=== PATIENT | male | born 1960 | race Caucasian/White ===

== ENCOUNTER 2021-09-22 18:29 | Inpatient (IN) | payer MEDICARE, OTHER ==
[2021-09-22 17:50] VITALS: BP 100/64
--- NOTE | 2021-09-22 17:50 | NUR ---
PROPAGATION MANAGERDATA PROGRAMMER NOTES RECEIVED FROM DIRECT FROM [facility] ENDORSED BY DR. OLMEDO VIA ROSANA. PATIENT IS RESTING AND DOESN'T ANSWER WHEN ASKED. UNABLE TO OBTAIN INFORMATION FROM THE PATIENT SINCE PATIENT IS CONFUSED. WITH NO COMPLAINTS OF PAIN OR DISCOMFORT AT THIS TIME. ON O2 AT 2LPM VIA NASAL CANNULA SATTING AT 97%. NO SOB NOTED. NOT IN DISTRESS. ON TELE MONITOR CURRENTLY READING SINUS RHYTHM AT 85BPM. WITH IV ACCESS AT RIGHT UPPER ARM G18 MIDLINE SALINE LOCKED, PATENT AND INTACT. PATIENT REFUSED SKIN ASSESSMENT. SAFETY MEASURES IN PLACED. CALL LIGHT WITHIN REACH. BED ON LOWEST LOCKED POSITION, SIDE RAILS UP X2. WILL CONTINUE TO MONITOR.
[2021-09-22] MEDS ORDERED: MAGNESIUM HYDROXIDE 30 ML UDC PO PRN (19:00)
[2021-09-22] MEDS ORDERED: LORAZEPAM 1 MG TABLET PO PRN (19:00)
[2021-09-22] MEDS ORDERED: MAG HYDROX/AL HYDROX/SIMETH 30 ML UDC PO PRN (19:00)
[2021-09-22] MEDS ORDERED: Z GUARD REMEDY 4 OZ OINT TP PRN (19:00)
[2021-09-22] MEDS ORDERED: ONDANSETRON HCL/PF 4 MG/2 ML VIAL IVP PRN (19:00)
--- NOTE | 2021-09-22 19:15 | NUR ---
RN NOTES PATIENT IS WITH SUICIDAL IDEATION PER REPORT FROM ENCINO. ENDORSED PATIENT TO SPENCER REGALADO FOR TITI.
--- NOTE | 2021-09-22 19:30 | NUR ---
RN NOTE RECEIVED PT SLEEPING, AROUSES TO STIMULI, PT REFUSED TO COMMUNICATE WHEN ASKED QUESTIONS, PT JUST SAYING NO. NO SIGNS OF DISTRESS NOTED. ON TELE MONITOR SHOWS SR HR 84. WILL CLOSELY MONITOR PATIENT.
[2021-09-22 19:44] LABS: CALCIUM, SERUM 8.1 mg/dL (8.5-10.1); CREATININE 0.6 mg/dL (0.6-1.3)
[2021-09-22 20:00] VITALS: BP 98/53
[2021-09-22 20:13] LABS: BASOPHILS % (AUTO) 0.3 % (0.0-2.0); EOSINOPHILS % (AUTO) 1.3 % (0.0-6.0); HEMATOCRIT 35 % (39-51); HEMOGLOBIN 11.5 g/dL (13.5-17.5); LYMPHOCYTES # (AUTO) 0.8 K/uL (0.8-4.8); LYMPHOCYTES % (AUTO) 6.9 % (20.0-44.0); MEAN CORPUSCULAR HGB CONC 33 g/dl (31.0-36.0); MEAN CORPUSCULAR VOLUME 91 fL (80-96); MONOCYTES # (AUTO) 0.9 K/uL (0.1-1.30); MONOCYTES % (AUTO) 8.2 % (2.0-12.0); NEUTROPHILS # (AUTO) 9.5 K/uL (1.8-8.9); NEUTROPHILS % (AUTO) 83.3 % (43.0-81.0); PLATELET COUNT (AUTO) 322 K/uL (150-450); WHITE BLOOD COUNT (AUTO) 11.4 K/uL (4.3-11.0)
[2021-09-23] VITALS: BP 96/64
--- NOTE | 2021-09-23 01:11 | NUR ---
RN NOTE PT STILL SLEEPING. NO SIGNS OF DISTRESS. ABLE TO TAKE PHOTO OF ABDOMINAL INCISION WITH DREW. NO S/SX OF INFECTION NOTED. SACRUM REDNESS NOTED, APPLIED ZGUARD. CONTINUE TO MONITOR.
[2021-09-23 04:03] VITALS: BP 104/72
--- NOTE | 2021-09-23 06:49 | NUR ---
RN NOTE PT UNCOOPERATIVE, SAYING NO TO EVERYTHING AND INAPPROPRIATE WORDS. NO SIGNS OF PAIN OR DISTRESS NOTED. CONTINUE ON O2 AT 2L. MIDLINE ON ERIC PATENT AND INTACT, FLUSHES WELL. ABDOMINAL SURGICAL DRESSING CLEAN DRY AND INTACT. WILL ENDORSE TO NEXT SHIFT NURSE FOR TITI.
[2021-09-23 06:58] LABS: BASOPHILS % (AUTO) 0.3 % (0.0-2.0); EOSINOPHILS % (AUTO) 1.6 % (0.0-6.0); HEMATOCRIT 30 % (39-51); HEMOGLOBIN 10.1 g/dL (13.5-17.5); LYMPHOCYTES # (AUTO) 0.9 K/uL (0.8-4.8); LYMPHOCYTES % (AUTO) 7.1 % (20.0-44.0); MEAN CORPUSCULAR HGB CONC 34 g/dl (31.0-36.0); MEAN CORPUSCULAR VOLUME 90 fL (80-96); MONOCYTES # (AUTO) 1.1 K/uL (0.1-1.30); PLATELET COUNT (AUTO) 333 K/uL (150-450); RED BLOOD CELL COUNT(AUTO) 3.31 MIL/uL (4.5-6.0); WHITE BLOOD COUNT (AUTO) 12.2 K/uL (4.3-11.0)
--- NOTE | 2021-09-23 07:00 | NUR ---
COMIC BOOK DESIGNER OPENING NOTES PATIENT LAYING IN BED, CONFUSED, TOLERATING WELL ON 2 LPM O2 VIA CANNULA WITH NO S/S SOB OR RESPIRATORY DISTRESS. NO COMPLAINTS OF PAIN OR DISCOMFORT AT THIS TIME. TELE MONITOR READING SINUS RHYTHM AT 82 HR. SAFETY MEASURES IN PLACE: CALL LIGHT WITHIN REACH. BED ON LOWEST LOCKED POSITION, SIDE RAILS UP X2. WILL CONTINUE TO MONITOR.
[2021-09-23 07:11] LABS: CALCIUM, SERUM 8.2 mg/dL (8.5-10.1); CREATININE 0.7 mg/dL (0.6-1.3); MAGNESIUM 2.1 mg/dL (1.8-2.4); PHOSPHORUS 3.7 mg/dL (2.5-4.9); POTASSIUM 4.4 mmol/L (3.5-5.1)
--- NOTE | 2021-09-23 08:00 | NUR ---
RN NOTES PATIENT REFUSED MORNING VITAL SIGNS
[2021-09-23] MEDS: GABAPENTIN 100 MG CAPSULE PO SCH ×4 (08:43→21:28)
[2021-09-23] MEDS: HALOPERIDOL 5 MG TABLET PO SCH ×2 (08:44→09:00)
[2021-09-23] MEDS: APIXABAN 5 MG TABLET PO SCH ×3 (08:45→16:11)
[2021-09-23] MEDS ORDERED: APIXABAN 5 MG TABLET PO SCH (09:00)
[2021-09-23] MEDS ORDERED: diphenhydrAMINE HCL 50 MG/ML VIAL IM PRN (10:00)
[2021-09-23] MEDS: OLANZAPINE 10 MG VIAL IM SCH ×2 (10:00→16:59)
[2021-09-23] MEDS ORDERED: LORAZEPAM INJ 2 MG/ML VIAL IM PRN (10:00)
[2021-09-23] MEDS ORDERED: DIVA-78 PO (10:37)
[2021-09-23] MEDS ORDERED: FOLI0.4T6 PO (10:37)
[2021-09-23] MEDS ORDERED: HALO5SYR IM (10:37)
[2021-09-23] MEDS ORDERED: BISA10SU11 RC (10:37)
[2021-09-23] MEDS ORDERED: PANT40TA2 PO (10:37)
[2021-09-23] MEDS ORDERED: CYAN100T9 PO (10:37)
[2021-09-23] MEDS ORDERED: BENZ1TAB7 PO (10:37)
[2021-09-23] MEDS ORDERED: GABA-532 PO (10:37)
[2021-09-23] MEDS ORDERED: DOCU-141 PO (10:37)
[2021-09-23] MEDS ORDERED: MORP2VIA IV (10:37)
[2021-09-23] MEDS ORDERED: POLY17PO4 PO (10:37)
[2021-09-23] MEDS ORDERED: HALO5TAB8 PO (10:37)
[2021-09-23] MEDS ORDERED: ONDA4VIA52 IV (10:37)
[2021-09-23] MEDS ORDERED: LORA-259 PO (10:37)
[2021-09-23] MEDS ORDERED: THIA100T70 PO (10:37)
[2021-09-23] MEDS ORDERED: ACET-868 PO (10:37)
[2021-09-23] MEDS ORDERED: MELA3TAB41 PO (10:37)
[2021-09-23] MEDS ORDERED: BISACODYL SUPP (10 MG) 10 MG/SUPP.RECT SUPP.RECT RC PRN (11:00)
[2021-09-23] MEDS ORDERED: POLYETHYLENE GLYCOL 3350 17 GM POWD.PACK PO PRN (11:00)
[2021-09-23] MEDS ORDERED: MORPHINE SULFATE INJ 2 MG/ML DISP.SYRIN IV PRN (11:30)
[2021-09-23] MEDS ORDERED: HALOPERIDOL 5 MG TABLET PO PRN (11:30)
[2021-09-23] MEDS: GABAPENTIN 300 MG CAPSULE PO SCH ×2 (12:01→16:11)
[2021-09-23] MEDS: BENZTROPINE MESYLATE (1 MG) 1 MG TABLET PO SCH (16:10)
[2021-09-23] MEDS: DIVALPROEX SODIUM 500 MG TABLET.DR PO SCH (16:11)
--- NOTE | 2021-09-23 18:58 | NUR ---
CROSS CUT SAWYER CLOSING NOTES PATIENT LAYING IN BED, CONFUSED, TOLERATING WELL ON 2 LPM O2 VIA CANNULA WITH NO S/S SOB OR RESPIRATORY DISTRESS. NO COMPLAINTS OF PAIN OR DISCOMFORT AT THIS TIME. TELE MONITOR READING SINUS RHYTHM AT 80 HR. PATIENT REFUSED ALL VITAL SIGNS AND ORAL MEDICATIONS TODAY, MD AWARE. ALL NEEDS MET. SAFETY MEASURES IN PLACE: CALL LIGHT WITHIN REACH. BED ON LOWEST LOCKED POSITION, SIDE RAILS UP X2. WILL ENDORSE TO STATISTICS TEACHER FOR TITI.
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
[2021-09-23 20:00] VITALS: BP 96/64
[2021-09-23] MEDS: DOCUSATE SODIUM 100 MG CAPSULE PO SCH (21:27)
[2021-09-23] MEDS ORDERED: Medication Not On Formulary EA (Melatonin 3 MG) PO SCH (22:00)
[2021-09-24] VITALS: BP 100/62
[2021-09-24 04:00] VITALS: BP 106/66
[2021-09-24] MEDS: GABAPENTIN 100 MG CAPSULE PO SCH ×4 (05:26→21:00)
[2021-09-24 06:52] LABS: BASOPHILS % (AUTO) 0.3 % (0.0-2.0); EOSINOPHILS % (AUTO) 2.3 % (0.0-6.0); HEMATOCRIT 30 % (39-51); HEMOGLOBIN 10.6 g/dL (13.5-17.5); LYMPHOCYTES # (AUTO) 0.8 K/uL (0.8-4.8); LYMPHOCYTES % (AUTO) 8.3 % (20.0-44.0); MEAN CORPUSCULAR HGB CONC 35 g/dl (31.0-36.0); MEAN CORPUSCULAR VOLUME 90 fL (80-96); MONOCYTES % (AUTO) 9.7 % (2.0-12.0); NEUTROPHILS % (AUTO) 79.4 % (43.0-81.0); PLATELET COUNT (AUTO) 390 K/uL (150-450); RED BLOOD CELL COUNT(AUTO) 3.39 MIL/uL (4.5-6.0); WHITE BLOOD COUNT (AUTO) 10.1 K/uL (4.3-11.0)
[2021-09-24 07:14] LABS: CALCIUM, SERUM 8.2 mg/dL (8.5-10.1); CREATININE 0.6 mg/dL (0.6-1.3); POTASSIUM 4.1 mmol/L (3.5-5.1)
[2021-09-24] MEDS: PANTOPRAZOLE 40 MG TABLET.DR PO SCH (07:30)
--- NOTE | 2021-09-24 07:49 | NUR ---
CHEF ASSISTANT OPENING NOTE Patient in bed, asleep. Patient is confused. On O2 at 2 LPM via NS, breathing evenly and unlabored. NO SOB or s/s of distress noted. IV access on ERIC midline SL, intact and patent. On tele mnitoring showing SR, HR on the 60's. Safety precautions in place: bed in low, locked position; siderails up x 2; call light within reach. Will continue to monitor.
[2021-09-24 08:00] VITALS: BP 96/52
[2021-09-24] MEDS: DIVALPROEX SODIUM 500 MG TABLET.DR PO SCH ×2 (08:54→17:00)
[2021-09-24] MEDS: APIXABAN 5 MG TABLET PO SCH ×2 (08:54→17:00)
[2021-09-24] MEDS: BENZTROPINE MESYLATE (1 MG) 1 MG TABLET PO SCH (08:54)
[2021-09-24] MEDS: FOLIC ACID 1 MG TABLET PO SCH (08:55)
[2021-09-24] MEDS: GABAPENTIN 300 MG CAPSULE PO SCH (08:55)
[2021-09-24] MEDS: THIAMINE HCL 100 MG TABLET PO SCH (08:55)
--- NOTE | 2021-09-24 09:00 | NUR ---
RN NOTE Patient refused all his AM PO medications. Soon, charge nurse aware.
[2021-09-24] MEDS: OLANZAPINE 10 MG VIAL IM SCH ×2 (09:01→17:29)
--- NOTE | 2021-09-24 12:32 | NUR ---
RN NOTE Patient refused VS to be taken. Also refused 12nn medication.
[2021-09-24 16:00] VITALS: BP 100/65
--- NOTE | 2021-09-24 16:08 | NUR ---
RN NOTE Patient refused temperature and SPO2 to be taken.
--- NOTE | 2021-09-24 17:00 | NUR ---
RN NOTE Patient has been refusing all PO medications. Dr. Lopez notified.
--- NOTE | 2021-09-24 18:49 | NUR ---
IRONWORKER FOREMAN CLOSING NOTE Patient in bed, resting. Patient is confused, get agitated and combative. On O2 at 2 LPM via NS, breathing evenly and unlabored. NO SOB or s/s of distress noted. IV access on ERIC midline SL, intact and patent. On tele monitoring showing SR, HR on the 90's. Patient kept clean and dry. Safety precautions maintained: bed in low, locked position; siderails up x 2; call light within reach. Will endorse to overnight cashier nurse for TITI.
--- NOTE | 2021-09-24 19:30 | NUR ---
RN NOTE RECEIVED PT IN BED. PT IS ON 2L OF O2 VIA NC SHOWING NO S/SX OF RESP DISTRESS. PT IS AOX1. CONFUSED, AGITATED. IV ACCESS NOTED ON RIGHT UPPER ARM ML. LINE FLUSHED, PATENT, AND INTACT WITH NO INFILTRATION. ALL SAFETY MEASURES IMPLEMENTED. HOB ELEVATED. CALL LIGHT WITHIN REACH. BED LOCKED AND IN LOWEST POSITION. SIDE RAILS UP. WILL CONTINUE TO MONITOR AND ASSESS FOR ANY CHANGES DURING SHIFT.
[2021-09-24 20:00] VITALS: BP 106/66
[2021-09-24] MEDS: DOCUSATE SODIUM 100 MG CAPSULE PO SCH (21:08)
[2021-09-25] VITALS: BP 97/60
--- NOTE | 2021-09-25 04:00 | NUR ---
RN NOTE PT BECAME AGGRESSIVE AND REFUSED 0400 VITALS. EXPLAINED RISKS/BENEFITS, BUT PT KEPT REFUSING.
[2021-09-25] MEDS: GABAPENTIN 100 MG CAPSULE PO SCH ×3 (04:37→21:34)
--- NOTE | 2021-09-25 06:59 | NUR ---
RN NOTE NO CHANGES IN PT CONDITION DURING SHIFT. PT IS ON 2L OF O2 VIA NC SHOWING NO S/SX OF RESP DISTRESS. PT IS AOX1. CONFUSED, AGITATED, AT TIMES AGGRESSIVE. IV ACCESS NOTED ON RIGHT UPPER ARM ML. ALL SAFETY MEASURES IMPLEMENTED. ALL DUE MEDS GIVEN ORDERED. PT KEPT CLEAN AND COMFORTABLE. HOB ELEVATED. CALL LIGHT WITHIN REACH. BED LOCKED AND IN LOWEST POSITION. SIDE RAILS UP. WILL ENDORSE TO MORNING SHIFT RN FOR TITI.
[2021-09-25] MEDS: PANTOPRAZOLE 40 MG TABLET.DR PO SCH (07:30)
[2021-09-25 08:00] VITALS: BP 115/50
[2021-09-25] MEDS: OLANZAPINE 10 MG VIAL IM SCH ×3 (09:00→17:54)
[2021-09-25] MEDS: DIVALPROEX SODIUM 500 MG TABLET.DR PO SCH ×2 (09:11→17:54)
[2021-09-25] MEDS: THIAMINE HCL 100 MG TABLET PO SCH (09:11)
[2021-09-25] MEDS: FOLIC ACID 1 MG TABLET PO SCH (09:12)
[2021-09-25] MEDS: APIXABAN 5 MG TABLET PO SCH ×2 (09:12→17:57)
--- NOTE | 2021-09-25 09:28 | NUR ---
RN NOTE PT GOES THROUGH PHASES OF AGGRESSIVENESS, CALMNESS AND PHASES OF REFUSING MEDICATION. PT WAS VERY CALM AFTER EATING BREAKFAST AND WANTED TO TAKE 0900 PO MEDICATIONS.
[2021-09-25 12:00] VITALS: BP 142/62
--- NOTE | 2021-09-25 12:36 | NUR ---
WOUND CARE CONSULT: ATTEMPTED TO DO SKIN ASSESSMENT THIS AM BUT PT WAS SLEEPING SOUNDLY. WILL SEE PT PT CONDITION PERMITS. REVIEWED CHART, NURSING DOCUMENTATION AND PHOTOS WHICH INDICATE INTACT DEEP TISSUE INJURY TO SACRUM AND ABDOMINAL INCISION CLOSED WITH DREW, PRESENT ON ADMISSION. DISCUSSED SKIN PROTECTION WITH NURSING STAFF. MD IN AGREEMENT WITH PLAN OF CARE.
--- NOTE | 2021-09-25 15:42 | NUR ---
RN NOTE PT IN BED RESTING COMFORTABLY. NO CHANGES IN CONDITION. PT WAS MORE COMPLIANT DURING SHIFT THUS FAR. ENDORSED TO ANEUDY FOR TITI.
[2021-09-25 16:00] VITALS: BP 100/55
--- NOTE | 2021-09-25 18:20 | NUR ---
RN notes: pt awake ate dinner abdominal wound dressing is soiled dressing changed with clean dressing, all evening meds given, pt in pt remain quite
--- NOTE | 2021-09-25 19:35 | NUR ---
CORK TILE FLOOR LAYER OPENING NOTES: RECEIVED PT IN BED AWAKE, ALERT/ORIENTED X2 WITH CONFUSION AND VERBALLY RESPONSIVE. BREATHING EVEN AND UNLABORED. IV ACCESS ON ERIC MIDLINE INTACT AND PATENT. NO S/S OF BLEEDING NOTED. NO C/O PAIN OR DISCOMFORT. NO ACUTE DISTRESS. ALL SAFETY MEASURES IN PLACE. BED IN LOWEST POSITION AND LOCKED. SIDE RAILS UP X2, PLACE CALL LIGHT WITH IN REACH. WILL CONTINUE TO MONITOR
[2021-09-25 20:00] VITALS: BP 91/53
--- NOTE | 2021-09-25 20:19 | NUR ---
ASSET PROTECTION GREETER CLOSING NOTE Patient in bed, resting. Patient is confused, get agitated and combative. On O2 at 2 LPM via NS, breathing evenly and unlabored. NO SOB or s/s of distress noted. IV access on ERIC midline SL, intact and patent. On tele monitoring showing SR, HR on the 90's. Patient kept clean and dry. Safety precautions maintained: bed in low, locked position; siderails up x 2; call light within reach. Will endorse to cage shift manager nurse for TITI.
[2021-09-25] MEDS: DOCUSATE SODIUM 100 MG CAPSULE PO SCH (21:34)
[2021-09-26] VITALS: BP 102/59
[2021-09-26] MEDS: ACETAMINOPHEN 325 MG TABLET PO PRN (01:29)
--- NOTE | 2021-09-26 01:33 | NUR ---
RN NOTES: PT C/O GENERALIZED BODY ACHE, 3/10 PAIN SCALE. TYLENOL 325 MG 2 TABS GIVEN PER PRN ORDER. WILL CONTINUE TO MONITOR
[2021-09-26 04:00] VITALS: BP 122/59
[2021-09-26] MEDS: GABAPENTIN 100 MG CAPSULE PO SCH ×3 (04:26→21:24)
--- NOTE | 2021-09-26 06:47 | NUR ---
DIMENSION SPECIFICATION INSPECTOR CLOSING NOTES: PT IN BED AWAKE, ALERT/ORIENTED X2 WITH VERY CONFUSE AND VERBALLY RESPONSIVE. BREATHING EVEN AND UNLABORED. IV ACCESS ON ERIC MIDLINE INTACT AND PATENT. NO S/S OF BLEEDING NOTED. NO C/O PAIN OR DISCOMFORT. NO ACUTE DISTRESS. ALL DUE GIVEN ORDERED AND PT TOLERATED WELL. NOTED EPISODES OF CURSING NURSES, USING BAD WORDS. REDIRECTED PT. PT IS UNCOOPERATIVE. ALL SAFETY MEASURES IN PLACE. BED IN LOWEST POSITION AND LOCKED. SIDE RAILS UP X2, PLACE CALL LIGHT WITH IN REACH. WILL ENDORSE TO MORNING SHIFT NURSE.
--- NOTE | 2021-09-26 07:30 | NUR ---
TOWN MANAGER OPENING NOTES: RECEIVED PT IN BED AWAKE, ALERT/ORIENTED X2 WITH VERY CONFUSE AND VERBALLY RESPONSIVE. ON O2 AT 2L/MIN, TOLERATING WELL. BREATHING EVEN AND UNLABORED. NOT IN ANY SIGN OF RESPIRATORY DISTRESS. IV ACCESS ON ERIC MIDLINE INTACT AND PATENT. SAFETY MEASURES IN PLACE. BED IN LOWEST POSITION AND LOCKED. SIDE RAILS UP X2, PLACE CALL LIGHT WITH IN REACH. WILL CONTINUE TO MONITOR PT.
[2021-09-26 08:00] VITALS: BP 98/58
[2021-09-26] MEDS: THIAMINE HCL 100 MG TABLET PO SCH (08:28)
[2021-09-26] MEDS: PANTOPRAZOLE 40 MG TABLET.DR PO SCH (08:28)
[2021-09-26] MEDS: FOLIC ACID 1 MG TABLET PO SCH (08:28)
[2021-09-26] MEDS: DIVALPROEX SODIUM 500 MG TABLET.DR PO SCH ×2 (08:28→16:15)
[2021-09-26] MEDS: APIXABAN 5 MG TABLET PO SCH ×2 (08:30→16:18)
[2021-09-26] MEDS: OLANZAPINE 10 MG VIAL IM SCH ×2 (08:34→16:16)
--- NOTE | 2021-09-26 09:30 | NUR ---
WOUND CARE CONSULT: LIMITED ASSESSMENT DUE TO PT REFUSING TO BE TURNED. LARGE CLOSED ABDOMINAL INCISION NOTED WITH DREW, NO DRAINAGE NOTED, PRESENT ON ADMISSION. ADMISSION PHOTO INDICATES INTACT SACRAL DEEP TISSUE INJURY. SURGICAL CONSULT REQUESTED FROM DR DILLARD. DISCUSSED SKIN PROTECTION WITH NURSING STAFF. MD IN AGREEMENT WITH PLAN OF CARE.
[2021-09-26 12:00] VITALS: BP 118/68
[2021-09-26 16:00] VITALS: BP 116/69
[2021-09-26 16:01] LABS: BASOPHILS # (AUTO) 0.1 K/uL (0.0-0.2); BASOPHILS % (AUTO) 0.9 % (0.0-2.0); EOSINOPHILS % (AUTO) 2.2 % (0.0-6.0); HEMATOCRIT 30 % (39-51); LYMPHOCYTES % (AUTO) 10.6 % (20.0-44.0); MEAN CORPUSCULAR HGB CONC 33 g/dl (31.0-36.0); MEAN CORPUSCULAR VOLUME 92 fL (80-96); MONOCYTES # (AUTO) 1.7 K/uL (0.1-1.30); MONOCYTES % (AUTO) 17.4 % (2.0-12.0); NEUTROPHILS # (AUTO) 6.7 K/uL (1.8-8.9); NEUTROPHILS % (AUTO) 68.9 % (43.0-81.0); PLATELET COUNT (AUTO) 332 K/uL (150-450); RED BLOOD CELL COUNT(AUTO) 3.28 MIL/uL (4.5-6.0); WHITE BLOOD COUNT (AUTO) 9.7 K/uL (4.3-11.0)
--- NOTE | 2021-09-26 18:32 | NUR ---
INFORMATICS CONSULTANT CLOSING NOTES: PT IN BED AWAKE, ALERT/ORIENTED X2 WITH VERY CONFUSE AND VERBALLY RESPONSIVE. ON O2 AT 2L/MIN, TOLERATING WELL WITH SPO2 AT 95%. BREATHING EVEN AND UNLABORED. NOT IN ANY SIGN OF RESPIRATORY DISTRESS. ON TELE FRONT WORKER WITH CURRENT READING OF SR, HR 94. IV ACCESS ON ERIC MIDLINE INTACT AND PATENT. ALL NEEDS ATTENDED. SAFETY MEASURES IN PLACE. BED IN LOWEST POSITION AND LOCKED. SIDE RAILS UP X2, PLACE CALL LIGHT WITH IN REACH. WILL ENDORSE TO MATHEMATICAL SCIENTIST NURSE FOR TTII.
--- NOTE | 2021-09-26 19:45 | NUR ---
CLOTH ROLL WINDER OPENING NOTES: RECEIVED PT IN BED AWAKE, ALERT/ORIENTED X2 WITH CONFUSION AND VERBALLY RESPONSIVE. BREATHING EVEN AND UNLABORED.IV ACCESS ON ERIC MIDLINE INTACT AND PATENT. NO S/S OF BLEEDING NOTED. NO C/O PAIN OR DISCOMFORT. NO ACUTE DISTRESS. REMAIN CALM AT THIS MOMENT. SITTER AT BEDSIDE. ALL SAFETY MEASURES IN PLACE. BED IN LOWEST POSITION AND LOCKED. SIDE RAILS UP X2, PLACE CALL LIGHT WITH IN REACH. WILL CONTINUE TO MONITOR
[2021-09-26 20:00] VITALS: BP 98/60
[2021-09-26] MEDS: DOCUSATE SODIUM 100 MG CAPSULE PO SCH (21:23)
[2021-09-27] VITALS: BP 94/59
[2021-09-27 04:00] VITALS: BP 95/58
[2021-09-27] MEDS: GABAPENTIN 100 MG CAPSULE PO SCH (04:46)
[2021-09-27] MEDS: ACETAMINOPHEN 325 MG TABLET PO PRN (06:47)
--- NOTE | 2021-09-27 06:51 | NUR ---
RN CLOSING NOTES: PT IN BED AWAKE, ALERT/ORIENTED X2 WITH VERY CONFUSE AND VERBALLY RESPONSIVE. BREATHING EVEN AND UNLABORED. IV ACCESS ON ERIC MIDLINE INTACT AND PATENT. NO S/S OF BLEEDING NOTED. NO C/O PAIN OR DISCOMFORT. NO ACUTE DISTRESS. ALL DUE GIVEN ORDERED AND PT TOLERATED WELL. NOTED EPISODES OF CURSING NURSES, USING BAD WORDS. REDIRECTED PT. REFUSED MORNING LAB WORKS, OFFERED SEVERAL TIMES BUT STILL REFUSED. PT IS UNCOOPERATIVE. NOTED PT'S TEMP INCREASED TO 100.1. TYLENOL 325 MG 2 TABS GIVEN. PT TOLERATED WELL. ALL SAFETY MEASURES IN PLACE. BED IN LOWEST POSITION AND LOCKED. SIDE RAILS UP X2, PLACE CALL LIGHT WITH IN REACH. WILL ENDORSE TO MORNING SHIFT NURSE.
--- NOTE | 2021-09-27 07:00 | NUR ---
RN NOTE RECEIVED PATIENT IN BED RESTING CONFUSED AGITATED,ON 2L OXYGEN VIA NASAL CANNULA WITH SITTER BESIDE IV IS ON RIGHT UPPER ARM MIDLINE INTACT PATENT,SAFETY MEASURE IMPLEMENT,BED IN LOW POSITION AND LOCKED,CONTINUE TO MONITOR.
[2021-09-27] MEDS: PANTOPRAZOLE 40 MG TABLET.DR PO SCH (07:45)
[2021-09-27 08:00] VITALS: BP 100/59
[2021-09-27] MEDS: OLANZAPINE 10 MG VIAL IM SCH (08:08)
[2021-09-27] MEDS: THIAMINE HCL 100 MG TABLET PO SCH (08:08)
[2021-09-27] MEDS: DIVALPROEX SODIUM 500 MG TABLET.DR PO SCH (08:08)
[2021-09-27] MEDS: FOLIC ACID 1 MG TABLET PO SCH (08:08)
[2021-09-27] MEDS: APIXABAN 5 MG TABLET PO SCH (08:10)
--- NOTE | 2021-09-27 09:00 | NUR ---
RN NOTE ALL PO MEDS GIVEN FOR 0900 INCLUDED OLANZAPINE IM INJECTION,PATIENT IS ON ROOM AIR TOLERATE WELL,SITTER BED SIDE CONTINUE TO MONITOR.
[2021-09-27] MEDS ORDERED: APIX5TAB PO ×2 (09:16→10:29)
[2021-09-27] MEDS ORDERED: APIX2.5T PO (10:29)
--- NOTE | 2021-09-27 10:30 | NUR ---
RN NOTE PATIENT TRANSFER TO GPS, REPORT GIVEN TO RISA PALMER
[2021-09-27 15:05] LABS: BASOPHILS # (AUTO) 0.1 K/uL (0.0-0.2); BASOPHILS % (AUTO) 0.6 % (0.0-2.0); EOSINOPHILS % (AUTO) 1.3 % (0.0-6.0); HEMATOCRIT 31 % (39-51); HEMOGLOBIN 10.5 g/dL (13.5-17.5); LYMPHOCYTES # (AUTO) 0.8 K/uL (0.8-4.8); LYMPHOCYTES % (AUTO) 6.1 % (20.0-44.0); MEAN CORPUSCULAR HGB CONC 34 g/dl (31.0-36.0); MEAN CORPUSCULAR VOLUME 90 fL (80-96); MONOCYTES # (AUTO) 1.7 K/uL (0.1-1.30); MONOCYTES % (AUTO) 13.5 % (2.0-12.0); NEUTROPHILS # (AUTO) 10.1 K/uL (1.8-8.9); NEUTROPHILS % (AUTO) 78.5 % (43.0-81.0); PLATELET COUNT (AUTO) 386 K/uL (150-450); RED BLOOD CELL COUNT(AUTO) 3.48 MIL/uL (4.5-6.0); WHITE BLOOD COUNT (AUTO) 12.9 K/uL (4.3-11.0)
[2021-09-27 15:41] LABS: CALCIUM, SERUM 8.8 mg/dL (8.5-10.1); CREATININE 0.8 mg/dL (0.6-1.3)
[2021-09-29] MEDS ORDERED: APIXABAN 5 MG TABLET PO SCH (09:00)
== END 2021-09-27 15:40 | DRG 176 ==
LOC: TELE-TD 18:29 → TELE1 20:41
PROVIDERS: ADMIT Internal Medicine; ATTEND Internal Medicine
DX: I26.99 Other pulmonary embolism without acute cor pulmonale (principal); I42.9 Cardiomyopathy, unspecified; F20.9 Schizophrenia, unspecified; S36.039D Unspecified laceration of spleen, subsequent encounter; X78.9XXD Intentional self-harm by unspecified sharp object, subsequent encounter; D72.829 Elevated white blood cell count, unspecified; E78.5 Hyperlipidemia, unspecified; F29 Unspecified psychosis not due to a substance or known physiological condition; Z91.51 Personal history of suicidal behavior; Z98.890 Other specified postprocedural states; Z86.711 Personal history of pulmonary embolism
CPT/HCPCS: 36415; 71045-TC; 80048-TC; 83735-TC; 84100-TC; 85025-TC; 94799-TC; A6253; G0378; J3490

== ENCOUNTER 2021-09-27 10:09 | Inpatient (IN) | payer MEDICARE, OTHER ==
[~2021-09-27] VITALS: Ht 175.3 cm; Wt 74.4 kg
[~2021-09-27 10:09] MED LIST: ACET-868 PO; APIX5TAB PO; BENZ1TAB7 PO; BISA10SU11 RC; CYAN100T9 PO; DIVA-78 PO; DOCU-141 PO; FOLI0.4T6 PO; GABA-532 PO; HALO5SYR IM; HALO5TAB8 PO; LORA-259 PO; MELA3TAB41 PO; MORP2VIA IV; ONDA4VIA52 IV; PANT40TA2 PO; POLY17PO4 PO; THIA100T70 PO
[2021-09-27] MEDS ORDERED: APIX5TAB PO (10:29)
[2021-09-27] MEDS ORDERED: APIX2.5T PO (10:29)
--- NOTE | 2021-09-27 10:35 | NUR ---
RN-ADMISSION NOTES ADMITTED 61 Y.O MALE PATIENT FROM [facility]. PATIENT WAS BROUGHT IN BY RN [facility] STAFF VIA HOSPITAL BED. PATIENT IS AWAKE,ALERT X1 INTERMITTENTLY SLEEPING MINIMAL INTERACTIONS WITH THE STAFF. PATIENT IS A POOR HISTORIAN. MOST OF THE INFORMATIONS WAS FROM THE HIS DISCHARGE PAPERS. DR. SWENSON ( PSYCHIATRIST) IN THE UNIT AND SEEN THE PATIENT.DR. DOHERTY MADE AWARE OF THE ADMISSION. CONTRABAND DONE PATIENT HAD NO BELONGINGS UPON ADMISSION. MRSA SWAB DONE AND FULL BODY ASSESSMENT DONE. NO FAMILY TO NOTIFY ON THE ADMISSION. PATIENT'S RIGHT BOOKLET AND MEDICATION BOOKLET WAS GIVEN TO THE PATIENT. PATIENT WAS ORIENTED IN THE UNIT AND UNIT POLICIES .PATIENT IS UNABLE TO VERIFY COVID , FLU AND PNA VACCINE. Addendum: 09/27/21 at 1856 by PURNIMA PERSAUD RN PATIENT HAD 33 DREW ON THE MID ABDOMEN.
[2021-09-27] MEDS ORDERED: ACETAMINOPHEN 325 MG TABLET PO PRN ×2 (11:00→15:00)
[2021-09-27] MEDS ORDERED: MAGNESIUM HYDROXIDE 30 ML UDC PO PRN (11:00)
[2021-09-27] MEDS ORDERED: BLOOD SUGAR DIAGNOSTIC 1 EACH STRIP IN ONE (11:00)
[2021-09-27] MEDS ORDERED: MAG HYDROX/AL HYDROX/SIMETH 30 ML UDC PO PRN (11:00)
--- NOTE | 2021-09-27 11:24 | NUR ---
TAN Initial Discharge Plan: Patient currently resides at [address] [place] [address]. Patient does not have any supportive contact at this time. TAN will help to coordinate appropriate discharge. TAN will work with the MD and pt to coordinate appropriate dc.
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
--- NOTE | 2021-09-27 11:29 | NUR ---
Social Work Note/Substance Abuse Intervention: Patient was provided with a brief substance abuse intervention and referred to [facility] ([phone]), [facility] ([phone]), and [facility] ([phone]) from [facility].
--- NOTE | 2021-09-27 14:42 | NUR ---
RN-NOTES RECEIVED T.O ORDER FROM DR. SWENSON OF [facility] DR 500MG P.O BID ,NEURONTIN 300MG P.O Q8HR, AND ZYPREXA ZYDIS 5MG P.O BID .NOTED AND CARRIED OUT.
[2021-09-27] MEDS ORDERED: POLYETHYLENE GLYCOL 3350 17 GM POWD.PACK PO PRN (15:00)
[2021-09-27] MEDS ORDERED: BISACODYL SUPP (10 MG) 10 MG/SUPP.RECT SUPP.RECT RC PRN (15:00)
[2021-09-27 16:00] VITALS: BP 106/64
[2021-09-27] MEDS: OLANZAPINE ZYDIS 5 MG TAB.RAPDIS PO SCH (17:00)
[2021-09-27] MEDS: DIVALPROEX SODIUM 500 MG TABLET.DR PO SCH (17:00)
[2021-09-27] MEDS: APIXABAN 5 MG TABLET PO SCH (17:01)
--- NOTE | 2021-09-27 18:57 | NUR ---
RN-NOTES PATIENT LYING IN BED INTERMITTENTLY SLEEPING,NO ACUTE DISTRESS NOTED.NOTED PATIENT WITH EASILY ANGRY BEHAVIOR. COMPLIANT WITH MEDICATIONS.PATIENT ABLE TO MOVE INDEPENDENTLY IN BED.ALL NEEDS ATTENDED AND ANTICIPATED. WILL CONT. MONITORING FOR SAFETY AND BEHAVIOR. WILL ENDORSE TO INCOMING NURSE FOR CONTINUITY OF CARE.
[2021-09-27 19:36] VITALS: BP 99/53
--- NOTE | 2021-09-27 19:51 | NUR ---
OPENING NOTES; IN BED EYES CLOSE. WILL OPEN HIS EYES WHEN NURSE SPEAKS HIS NAME RESP EVEN AND UNLABORED
[2021-09-27 20:00] VITALS: BP 99/53
[2021-09-27] MEDS: THERAHONEY GEL 1.5 OZ TUBE TP SCH (20:23)
[2021-09-27] MEDS ORDERED: GABAPENTIN 100 MG CAPSULE PO SCH (21:00)
[2021-09-27] MEDS: GABAPENTIN 300 MG CAPSULE PO SCH ×3 (21:00→21:34)
--- NOTE | 2021-09-27 21:30 | NUR ---
MEDICATIONS: PATIENT WAS HANDED HIS MEDICATIONS IN A MEDICINE CUP.... HE LOOKED IN THE CUP AND THEN GAVE THEM BACK TO ME STATING "I DON'T WANT ANY MEDICINE , THEY MAKE ME FEEL FULL IN THE STOMACH", EXPLAINED TO HIM THE IMPORTANCE OF THE MEDICATION. HE TURNED TO HIS SIDE AND COVERED HIS MOUTH WITH THE BLANKET . JEFFRY TYLENOL NEURONTINE COLACE NOT GIVEN JEFFRY RETURNED TO THE RETURN BIN FOR THE PHARMACY. ATTEMPT TO OFFER THE MEDICINE TO HIM X3
[2021-09-27] MEDS: DOCUSATE SODIUM 100 MG CAPSULE PO SCH (21:31)
[2021-09-27] MEDS: ZOLPIDEM TARTRATE 5 MG TABLET PO PRN ×3 (21:35→21:41)
[2021-09-28] MEDS: GABAPENTIN 300 MG CAPSULE PO SCH ×3 (05:00→21:21)
--- NOTE | 2021-09-28 05:24 | NUR ---
CLOSING NOTES: REFUSED ALL MEDICATIONS THRU THE NIGHT. STATED THEY MAKE HIS STOMACH TOO FULL". HE IS EASILY ANGERED AND WILL RAISE HIS HANDS AND GIVE YOU A GLARING LOOK. hE WILL NOT ALWAYS ANSWER WHEN THE NURSE SPEAKS TO HIM, HE WILL GIVE HER A GLARING LOOK THEN TURN AWAY FROM HER. REFEUSED TREATMENT TO HIS DTI ON THE SACRUM. URINAL PLACED AT THE BEDSIDE.
--- NOTE | 2021-09-28 07:10 | NUR ---
WOUND CARE CONSULT: PT RESTING AT THIS TIME. REVIEWED CHART, NURSING DOCUMENTATION AND SPOKE WITH NURSING STAFF. PER ADMISSION PHOTOS, PT PRESENTS WITH SACRAL DEEP TISSUE INJURY, LEFT EAR DRY LESION AND ABDOMINAL INCISION WITH DREW, PRESENT ON ADMISSION. DEFER TO SURGICAL TEAM CURRENTLY ON CASE. WILL SEE PRN. DISCUSSED SKIN PROTECTION WITH NURSING STAFF.
[2021-09-28 07:16] LABS: BILIRUBIN,TOTAL 0.5 mg/dL (0.2-1.0); TOTAL PROTEIN, SERUM 6.3 g/dL (6.4-8.2)
[2021-09-28] MEDS ORDERED: Z GUARD REMEDY 4 OZ OINT TP PRN (07:30)
[2021-09-28 08:00] VITALS: BP 110/80
[2021-09-28 08:08] LABS: CALCIUM, SERUM 8.3 mg/dL (8.5-10.1); CREATININE 0.8 mg/dL (0.6-1.3)
[2021-09-28 08:23] LABS: CHOLESTEROL 73 mg/dL (<200); HDL CHOLESTEROL 23 mg/dL (40-60); LDL 40 mg/dL (0-99); TRIGLYCERIDES 56 mg/dL (30-150)
[2021-09-28] MEDS: OLANZAPINE ZYDIS 5 MG TAB.RAPDIS PO SCH ×2 (08:42→16:26)
[2021-09-28] MEDS: CYANOCOBALAMIN 100 MCG TABLET PO SCH (08:42)
[2021-09-28] MEDS: FOLIC ACID 1 MG TABLET PO SCH (08:42)
[2021-09-28] MEDS: DIVALPROEX SODIUM 500 MG TABLET.DR PO SCH ×2 (08:42→16:25)
[2021-09-28] MEDS: THIAMINE HCL 100 MG TABLET PO SCH (08:46)
[2021-09-28] MEDS: APIXABAN 5 MG TABLET PO SCH ×2 (08:46→16:24)
[2021-09-28] MEDS: PANTOPRAZOLE 40 MG TABLET.DR PO SCH (08:46)
[2021-09-28] MEDS: ESCITALOPRAM OXALATE (10 MG) 10 MG TABLET PO SCH (08:49)
[2021-09-28] MEDS: THERAHONEY GEL 1.5 OZ TUBE TP SCH (09:52)
[2021-09-28 16:00] VITALS: BP 101/54
[2021-09-28] MEDS: ENSURE ENLIVE CHOC 237 ML CAN PO SCH (16:26)
--- NOTE | 2021-09-28 17:44 | NUR ---
RN-NOTES PATIENT LYING IN BED INTERMITTENTLY SLEEPING,NO ACUTE DISTRESS NOTED.NOTED PATIENT WITH EASILY GUARDED,ANGRY,AND IRRITABLE BEHAVIOR. ALL NEEDS ATTENDED AND ANTICIPATED.WILL CONT. MONITORING FOR SAFETY AND BEHAVIOR. WILL ENDORSE TO INCOMING NURSE FOR CONTINUITY OF CARE.
--- NOTE | 2021-09-28 19:30 | NUR ---
GPS RN OPENING NOTE RECEIVED PT IN BED, EYES CLOSED, EASILY AROUSABLE. PT STABLE ON ROOM AIR. NO SOB OR S/S OF RESPIRATORY DISTRESS. BREATHING EVEN AND UNLABORED. NO COMPLAINTS OF PAIN AT THIS TIME. SACRAL DRESSING C/D/I. PT IS GUARDED AND EASILY AGITATED WITH FLAT AFFECT. PT DENIES SUICIDAL OR HOMICIDAL IDEATION AT THIS TIME. SAFETY PRECAUTIONS IN PLACE. BED IN LOWEST LOCKED POSITION, SIDE RAILS RAISED, BED ALARM ON, AND CALL LIGHT WITHIN REACH. ALL NEEDS MET AT THIS TIME.
[2021-09-28 20:00] VITALS: BP 102/82
[2021-09-28] MEDS: DOCUSATE SODIUM 100 MG CAPSULE PO SCH (21:21)
[2021-09-29] MEDS: GABAPENTIN 300 MG CAPSULE PO SCH ×3 (05:45→20:20)
--- NOTE | 2021-09-29 06:37 | NUR ---
GPS RN CLOSING NOTE PT IN BED, EYES CLOSED, EASILY AROUSABLE. PT STABLE ON ROOM AIR. NO SOB OR S/S OF RESPIRATORY DISTRESS. BREATHING EVEN AND UNLABORED. NO COMPLAINTS OF PAIN AT THIS TIME. SACRAL DRESSING C/D/I. ABDOMINAL DRESSING C/D/I. PT IS GUARDED AND EASILY AGITATED WITH FLAT AFFECT. MED COMPLIANT THIS SHIFT. PT DENIES SUICIDAL OR HOMICIDAL IDEATION AT THIS TIME. ALL DUE MEDS GIVEN ORDERED. SAFETY PRECAUTIONS IN PLACE AT ALL TIMES. BED IN LOWEST LOCKED POSITION, SIDE RAILS RAISED, BED ALARM ON, AND CALL LIGHT WITHIN REACH. ALL NEEDS MET AT THIS TIME AND WILL ENDORSE TO ONCOMING NURSE FOR TITI.
[2021-09-29] MEDS: PANTOPRAZOLE 40 MG TABLET.DR PO SCH ×2 (07:30→09:17)
[2021-09-29 08:00] VITALS: BP 98/57
--- NOTE | 2021-09-29 08:21 | NUR ---
GPS/RN PT REFUSED MORNING MEDS AND CARE. OFFERED X3. PT STATES: " I AM NOT TAKING YOUR F..... MEDICINE"
[2021-09-29] MEDS: FOLIC ACID 1 MG TABLET PO SCH ×2 (08:41→09:17)
[2021-09-29] MEDS: APIXABAN 5 MG TABLET PO SCH ×2 (08:41→17:11)
[2021-09-29] MEDS: DIVALPROEX SODIUM 500 MG TABLET.DR PO SCH (08:41)
[2021-09-29] MEDS: THIAMINE HCL 100 MG TABLET PO SCH ×2 (08:42→09:16)
[2021-09-29] MEDS: OLANZAPINE ZYDIS 5 MG TAB.RAPDIS PO SCH ×3 (08:42→17:10)
[2021-09-29] MEDS: CYANOCOBALAMIN 100 MCG TABLET PO SCH ×2 (08:42→09:16)
[2021-09-29] MEDS: ESCITALOPRAM OXALATE (10 MG) 10 MG TABLET PO SCH ×2 (08:42→09:16)
[2021-09-29] MEDS: THERAHONEY GEL 1.5 OZ TUBE TP SCH ×2 (08:42→09:17)
[2021-09-29] MEDS: ENSURE ENLIVE CHOC 237 ML CAN PO SCH ×2 (08:44→17:10)
--- NOTE | 2021-09-29 09:19 | NUR ---
GPS/RN PT TOOK AM MEDS. UNABLE TO SCAN DEPAKOTE AND ZYPREXA D/T CHANGES OF TIME BY PHARMACY
--- NOTE | 2021-09-29 09:50 | NUR ---
Individual Therapy: SW met with patient to conduct therapy. Pt appeared to be labile and angry. Pt did not want to speak to this jingle writer at this time.
[2021-09-29] MEDS: DIVALPROEX SODIUM 125 MG CAP.SPRINK PO SCH ×3 (14:01→20:20)
[2021-09-29 16:00] VITALS: BP 106/59
--- NOTE | 2021-09-29 19:15 | NUR ---
GPS RN NOTES RECEIVED PATIENT RESTING IN BED. ALERT AND ORIENTED X2. NO S/SX OF ACUTE DISTRESS NOTED. PATIENT IS IRRITABLE, GUARDED AND MED COMPLIANT. NO VERBALIZATION OF THOUGHTS AND FEELINGS. SAFETY PRECAUTIONS MAINTAINED. ALL NEEDS ATTENDED AND ANTICIPATED. WILL CONTINUE MONITORING Q15MIN FOR SAFETY AND BEHAVIOR.
[2021-09-29 20:08] VITALS: BP 102/67
[2021-09-29] MEDS: DOCUSATE SODIUM 100 MG CAPSULE PO SCH (21:19)
[2021-09-29] MEDS: ZOLPIDEM TARTRATE 5 MG TABLET PO PRN (23:21)
[2021-09-30] MEDS: GABAPENTIN 300 MG CAPSULE PO SCH ×3 (06:00→21:19)
[2021-09-30 08:00] VITALS: BP 106/63
[2021-09-30] MEDS: ENSURE ENLIVE CHOC 237 ML CAN PO SCH ×2 (08:23→16:26)
[2021-09-30] MEDS: FOLIC ACID 1 MG TABLET PO SCH (08:27)
[2021-09-30] MEDS: DIVALPROEX SODIUM 125 MG CAP.SPRINK PO SCH ×4 (08:27→21:19)
[2021-09-30] MEDS: ESCITALOPRAM OXALATE (10 MG) 10 MG TABLET PO SCH (08:27)
[2021-09-30] MEDS: THIAMINE HCL 100 MG TABLET PO SCH (08:27)
[2021-09-30] MEDS: OLANZAPINE ZYDIS 5 MG TAB.RAPDIS PO SCH ×3 (08:27→16:27)
[2021-09-30] MEDS: CYANOCOBALAMIN 100 MCG TABLET PO SCH (08:27)
[2021-09-30] MEDS: PANTOPRAZOLE 40 MG TABLET.DR PO SCH (08:27)
[2021-09-30] MEDS: APIXABAN 5 MG TABLET PO SCH ×2 (08:29→16:31)
[2021-09-30] MEDS: THERAHONEY GEL 1.5 OZ TUBE TP SCH (08:30)
--- NOTE | 2021-09-30 09:00 | NUR ---
GPS/RN RECEIVED PATIENT RESTING IN BED RESTING, NO ACUTE DISTRESS NOTED. NOTED WITH ANGRY AND IRRITABLE BEHAVIOR. COMPLIANT WITH MEDS WITH ENCOURAGEMENT.ALL NEEDS ATTENDED AND ANTICIPATED.WILL CONTINUE MONITORING Q15MIN FOR SAFETY AND BEHAVIOR.
[2021-09-30 16:00] VITALS: BP 104/61
[2021-09-30 20:33] VITALS: BP 108/60
[2021-09-30] MEDS: DOCUSATE SODIUM 100 MG CAPSULE PO SCH (21:19)
--- NOTE | 2021-10-01 01:28 | NUR ---
RN NOTES: PATIENT PLACED IN COMFORTABLY, ON JIMENEZ AIR, NO ACUTE DISTRESS WAS OBSERVED, COMPLIANT WITH MEDS WITH ENCOURAGEMENT.ALL NEEDS ATTENDED AND ANTICIPATED, KEPT CLEAN AND DRY, Q15MIN FOR SAFETY AND BEHAVIOR. WILL CONTINUE TO MONITOR.
[2021-10-01] MEDS: GABAPENTIN 300 MG CAPSULE PO SCH ×3 (05:32→20:11)
[2021-10-01 08:01] VITALS: BP 99/59
[2021-10-01] MEDS: ENSURE ENLIVE CHOC 237 ML CAN PO SCH ×2 (08:10→17:05)
[2021-10-01] MEDS: PANTOPRAZOLE 40 MG TABLET.DR PO SCH (08:12)
[2021-10-01] MEDS: DIVALPROEX SODIUM 125 MG CAP.SPRINK PO SCH ×4 (08:13→20:11)
[2021-10-01] MEDS: THIAMINE HCL 100 MG TABLET PO SCH (08:13)
[2021-10-01] MEDS: FOLIC ACID 1 MG TABLET PO SCH (08:13)
[2021-10-01] MEDS: OLANZAPINE ZYDIS 5 MG TAB.RAPDIS PO SCH ×3 (08:13→16:57)
[2021-10-01] MEDS: ESCITALOPRAM OXALATE (10 MG) 10 MG TABLET PO SCH (08:13)
[2021-10-01] MEDS: CYANOCOBALAMIN 100 MCG TABLET PO SCH (08:14)
[2021-10-01] MEDS: APIXABAN 5 MG TABLET PO SCH ×2 (08:14→16:58)
[2021-10-01] MEDS: THERAHONEY GEL 1.5 OZ TUBE TP SCH (08:15)
[2021-10-01 16:05] VITALS: BP 95/61
[2021-10-01 20:00] VITALS: BP 99/89
[2021-10-01] MEDS: DOCUSATE SODIUM 100 MG CAPSULE PO SCH (21:16)
--- NOTE | 2021-10-01 23:00 | NUR ---
GPS RN NOTES PT RESTING IN BED. A/O X2. BREATHING EVEN AND NON-LABORED ON ROOM AIR. NOT IN APPARENT DISTRESS, EASILY AGITATED AND IRRITABLE. DISHEVELED. COMPLIANT WITH MEDS. ALL NEEDS ATTENDED AND ANTICIPATED. WILL CONTINUE MONITORING Q15MIN FOR SAFETY AND BEHAVIOR.
[2021-10-02] MEDS: ZOLPIDEM TARTRATE 5 MG TABLET PO PRN (00:22)
--- NOTE | 2021-10-02 00:33 | NUR ---
PT TALKING TO HIMSELF, NEEDY AND KEPT ASKING THE NURSE "WHEN ARE YOU COMING BACK, I NEED SOMEONE TO TALK TO." I GAVE HIM A SANDWICH AND HIS PRN AMBIEN. HE ALSO KEPT ASKING TO FIX HIS BED. ROD DRAWER CHANGED LINENS ALREADY. EDUCATED THAT WE ARE ALWAYS CHECKING ON HIM AND JUST LETTING HIM GET SOME SLEEP.
--- NOTE | 2021-10-02 04:10 | NUR ---
WEEKLY SKIN ASSESSMENT DONE AND PHOTOS TAKEN. PT WAS SOMEHOW UNCOOPERATIVE AND NEEDS CONSTANT REDIRECTION.
[2021-10-02] MEDS: GABAPENTIN 300 MG CAPSULE PO SCH ×3 (04:26→21:20)
--- NOTE | 2021-10-02 07:09 | NUR ---
WOUND CARE CONSULT: RECEIVED SECOND WOUND CONSULT FOR SACRAL DEEP TISSUE INJURY WHICH WAS PRESENT ON ADMISSION. DEFER TO SURGICAL TEAM CURRENTLY ON CASE. ALL SKIN PROTECTION MEASURES IN PLACE. MD IN AGREEMENT WITH PLAN OF CARE.
[2021-10-02] MEDS: PANTOPRAZOLE 40 MG TABLET.DR PO SCH (07:30)
[2021-10-02 08:00] VITALS: BP 107/57
[2021-10-02] MEDS: ENSURE ENLIVE CHOC 237 ML CAN PO SCH ×2 (08:00→17:44)
[2021-10-02] MEDS: CYANOCOBALAMIN 100 MCG TABLET PO SCH (09:13)
[2021-10-02] MEDS: DIVALPROEX SODIUM 125 MG CAP.SPRINK PO SCH ×4 (09:13→21:21)
[2021-10-02] MEDS: ESCITALOPRAM OXALATE (10 MG) 10 MG TABLET PO SCH (09:13)
[2021-10-02] MEDS: FOLIC ACID 1 MG TABLET PO SCH (09:15)
[2021-10-02] MEDS: OLANZAPINE ZYDIS 5 MG TAB.RAPDIS PO SCH ×3 (09:15→17:43)
[2021-10-02] MEDS: APIXABAN 5 MG TABLET PO SCH ×2 (09:16→17:43)
[2021-10-02] MEDS: THERAHONEY GEL 1.5 OZ TUBE TP SCH (09:16)
[2021-10-02] MEDS: THIAMINE HCL 100 MG TABLET PO SCH (09:18)
--- NOTE | 2021-10-02 10:22 | NUR ---
Court Notification: Pt does not have any family to notify.
--- NOTE | 2021-10-02 10:23 | NUR ---
Court Hearing: Patient's court hearing was today and it was upheld for GD.
--- NOTE | 2021-10-02 15:41 | NUR ---
Individual Counseling: SW met with pt. at bedside. The pt. is alert & oriented x 3 and makes piercing eye contact. The pt. is irritable with dysphoric affect. Pt. is guarded,stated he is not feeling good and refused to discuss what is making him upset. SW attempted to educate pt. on positive coping mechanisms and pt stated, "that's not my things" and began to raise his voice. SW used active listening and respected patient's unwillingness to engage in conversation.
[2021-10-02 16:00] VITALS: BP 108/60
[2021-10-02 19:30] VITALS: BP 101/52
--- NOTE | 2021-10-02 20:20 | NUR ---
GPS RN NOTES RECEIVED PATIENT RESTING IN BED. ALERT AND ORIENTED X2. NO SOB/DISTRESS NOTED. NO VERBALIZATION OF THOUGHTS AND FEELINGS. SAFETY PRECAUTIONS MAINTAINED. ALL NEEDS ATTENDED AND ANTICIPATED. WILL CONTINUE MONITORING Q15MIN FOR SAFETY AND BEHAVIOR.
[2021-10-02] MEDS: DOCUSATE SODIUM 100 MG CAPSULE PO SCH (21:20)
[2021-10-03] MEDS: LORAZEPAM 0.5 MG TABLET PO PRN (02:02)
--- NOTE | 2021-10-03 02:11 | NUR ---
RN NOTES PT STATED FEELING ANXIOUS.PRN ATIVAN 1MG WAS GIVEN PO.NO SIGN A/R NOTED.
[2021-10-03] MEDS: GABAPENTIN 300 MG CAPSULE PO SCH ×3 (05:08→21:30)
[2021-10-03] MEDS: PANTOPRAZOLE 40 MG TABLET.DR PO SCH (07:30)
[2021-10-03 08:00] VITALS: BP 90/60
[2021-10-03] MEDS: ENSURE ENLIVE CHOC 237 ML CAN PO SCH ×2 (08:00→17:00)
[2021-10-03] MEDS: CYANOCOBALAMIN 100 MCG TABLET PO SCH (09:11)
[2021-10-03] MEDS: APIXABAN 5 MG TABLET PO SCH ×2 (09:16→17:47)
[2021-10-03] MEDS: DIVALPROEX SODIUM 125 MG CAP.SPRINK PO SCH ×4 (09:27→21:30)
[2021-10-03] MEDS: OLANZAPINE ZYDIS 5 MG TAB.RAPDIS PO SCH ×3 (09:27→17:47)
[2021-10-03] MEDS: ESCITALOPRAM OXALATE (10 MG) 10 MG TABLET PO SCH (09:27)
[2021-10-03] MEDS: THIAMINE HCL 100 MG TABLET PO SCH (09:27)
[2021-10-03] MEDS: THERAHONEY GEL 1.5 OZ TUBE TP SCH (09:28)
[2021-10-03] MEDS: FOLIC ACID 1 MG TABLET PO SCH (09:28)
--- NOTE | 2021-10-03 09:47 | NUR ---
TAN SNF Referral: TAN sent clinicals to Ashia from [facility] ([phone]) for placement option. TAN sent H & P, progress notes, and medication list.
[2021-10-03 16:00] VITALS: BP 90/59
[2021-10-03 19:29] VITALS: BP 96/61
[2021-10-03] MEDS: DOCUSATE SODIUM 100 MG CAPSULE PO SCH (21:30)
[2021-10-04] MEDS: GABAPENTIN 300 MG CAPSULE PO SCH ×3 (05:42→21:25)
[2021-10-04 08:00] VITALS: BP 112/62
[2021-10-04] MEDS: ENSURE ENLIVE CHOC 237 ML CAN PO SCH ×2 (08:00→17:39)
[2021-10-04] MEDS: FOLIC ACID 1 MG TABLET PO SCH (09:11)
[2021-10-04] MEDS: THIAMINE HCL 100 MG TABLET PO SCH (09:11)
[2021-10-04] MEDS: DIVALPROEX SODIUM 125 MG CAP.SPRINK PO SCH ×4 (09:11→21:25)
[2021-10-04] MEDS: OLANZAPINE ZYDIS 5 MG TAB.RAPDIS PO SCH ×3 (09:11→21:25)
[2021-10-04] MEDS: ESCITALOPRAM OXALATE (10 MG) 10 MG TABLET PO SCH (09:12)
[2021-10-04] MEDS: CYANOCOBALAMIN 100 MCG TABLET PO SCH (09:12)
[2021-10-04] MEDS: PANTOPRAZOLE 40 MG TABLET.DR PO SCH (09:12)
[2021-10-04] MEDS: APIXABAN 5 MG TABLET PO SCH ×2 (09:14→17:44)
[2021-10-04] MEDS: THERAHONEY GEL 1.5 OZ TUBE TP SCH (09:17)
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
--- NOTE | 2021-10-04 09:39 | NUR ---
SNF Referral: TAN sent clinicals to from [facility] ([phone]) for placement. SW will send H & P, progress notes, and medication list.
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
--- NOTE | 2021-10-04 14:20 | NUR ---
SNF Referral: SW sent clinicals to [facility] ([phone]) to Lyla torres for placement. SW sent H & P, progress notes, and medication list.
--- NOTE | 2021-10-04 14:35 | NUR ---
SNF Referral: TAN sent clinicals to Wili from [facility] ([phone]) for placement option. SW sent H & P, progress notes, and medication list.
[2021-10-04 16:00] VITALS: BP 101/61
--- NOTE | 2021-10-04 18:00 | NUR ---
BECAME EXTREMELY GROGGY AFTER ZYPREXA DOSE IN AM.
[2021-10-04 20:00] VITALS: BP 107/68
[2021-10-04] MEDS: DOCUSATE SODIUM 100 MG CAPSULE PO SCH (21:25)
[2021-10-05] MEDS: ZOLPIDEM TARTRATE 5 MG TABLET PO PRN (00:01)
[2021-10-05] MEDS: GABAPENTIN 300 MG CAPSULE PO SCH ×3 (05:24→21:23)
[2021-10-05 08:00] VITALS: BP 111/65
[2021-10-05] MEDS: THIAMINE HCL 100 MG TABLET PO SCH (08:19)
[2021-10-05] MEDS: DIVALPROEX SODIUM 125 MG CAP.SPRINK PO SCH ×4 (08:19→21:23)
[2021-10-05] MEDS: OLANZAPINE ZYDIS 5 MG TAB.RAPDIS PO SCH ×2 (08:19→21:23)
[2021-10-05] MEDS: PANTOPRAZOLE 40 MG TABLET.DR PO SCH (08:19)
[2021-10-05] MEDS: CYANOCOBALAMIN 100 MCG TABLET PO SCH (08:19)
[2021-10-05] MEDS: FOLIC ACID 1 MG TABLET PO SCH (08:20)
[2021-10-05] MEDS: ESCITALOPRAM OXALATE (10 MG) 10 MG TABLET PO SCH (08:21)
[2021-10-05] MEDS: APIXABAN 5 MG TABLET PO SCH ×2 (08:23→16:20)
[2021-10-05] MEDS: ENSURE ENLIVE CHOC 237 ML CAN PO SCH ×2 (08:29→16:50)
[2021-10-05] MEDS: THERAHONEY GEL 1.5 OZ TUBE TP SCH (09:40)
--- NOTE | 2021-10-05 09:55 | NUR ---
SNF Contact: SW spoke with Wili from [facility] ([phone]) who stated pt is accepted.
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
[2021-10-05 16:00] VITALS: BP 96/75
--- NOTE | 2021-10-05 19:30 | NUR ---
GPS RN NOTE, RECEIVED PATIENT AWAKE AND IN BED, NO S/S OR COMPLAINTS OF PAIN AT THIS TIME. PATIENT IS DISPLAYING NO S/S OF APPARENT DISTRESS AT THIS TIME. PATIENT BREATHING IS UNLABORED WITH EQUAL RISE AND FALL OF THE CHEST. PATIENT IS ALERT AND ORIENTED X 1-2 ON ROOM AIR WITH A SPO2 93%. PATIENT IS COMPLIANT WITH MEDICATIONS, PARANOID, ANXIOUS AT TIMES, AND COOPERATIVE. PATIENT DENIES SUICIDAL AND HOMICIDAL IDEATIONS AT THIS TIME. PATIENT ASSISTED WITH TURNING AND REPOSITIONING Q2HR AND PRN FOR COMFORT AND CIRCULATION. PATIENT HAS NO NEEDS AT THIS TIME. PATIENT EDUCATED ON THE USE OF THE CALL WEBB. PATIENT BED SIDE RAILS UP X 2 FOR SAFETY. PATIENT BED IS LOCKED, LOW, WITH BED ALARM ON. WILL CONTINUE TO MONITOR THIS PATIENT Q15 MINUTES WITH THE HELP OF STAFF TO MAINTAIN SAFETY.
[2021-10-05 20:00] VITALS: BP 110/60
[2021-10-05] MEDS: DOCUSATE SODIUM 100 MG CAPSULE PO SCH (21:23)
[2021-10-06] MEDS: GABAPENTIN 300 MG CAPSULE PO SCH ×3 (05:50→21:16)
[2021-10-06 08:00] VITALS: BP 99/59
[2021-10-06] MEDS: THIAMINE HCL 100 MG TABLET PO SCH (08:19)
[2021-10-06] MEDS: DIVALPROEX SODIUM 125 MG CAP.SPRINK PO SCH ×4 (08:19→21:15)
[2021-10-06] MEDS: FOLIC ACID 1 MG TABLET PO SCH (08:19)
[2021-10-06] MEDS: OLANZAPINE ZYDIS 5 MG TAB.RAPDIS PO SCH (08:19)
[2021-10-06] MEDS: CYANOCOBALAMIN 100 MCG TABLET PO SCH (08:19)
[2021-10-06] MEDS: PANTOPRAZOLE 40 MG TABLET.DR PO SCH (08:19)
[2021-10-06] MEDS: ESCITALOPRAM OXALATE (10 MG) 10 MG TABLET PO SCH (08:19)
[2021-10-06] MEDS: APIXABAN 5 MG TABLET PO SCH ×2 (08:20→16:43)
[2021-10-06] MEDS: ENSURE ENLIVE CHOC 237 ML CAN PO SCH ×2 (08:25→17:22)
[2021-10-06] MEDS: THERAHONEY GEL 1.5 OZ TUBE TP SCH (09:34)
--- NOTE | 2021-10-06 10:20 | NUR ---
RN Notes:Received pt.awake in bed, quiet, no distress and no agitation noted.. Ate 100% for breakfast, compliant on meds.and treatment. Morning care rendered and skin treatment rendered on the sacral area. Encouraged to verbalize feelings and motivated to attend group activity. Will continue to monitor for safety.
[2021-10-06 16:00] VITALS: BP 100/59
[2021-10-06 20:21] VITALS: BP 99/59
[2021-10-06] MEDS: DOCUSATE SODIUM 100 MG CAPSULE PO SCH (21:15)
[2021-10-06] MEDS: OLANZAPINE 10 MG TABLET PO SCH (21:16)
[2021-10-06] MEDS: ZOLPIDEM TARTRATE 5 MG TABLET PO PRN (23:46)
[2021-10-07] MEDS: LORAZEPAM 0.5 MG TABLET PO PRN (03:15)
[2021-10-07] MEDS: GABAPENTIN 300 MG CAPSULE PO SCH ×3 (05:47→21:21)
[2021-10-07] MEDS: PANTOPRAZOLE 40 MG TABLET.DR PO SCH (06:36)
[2021-10-07 08:00] VITALS: BP 99/58
[2021-10-07] MEDS: DIVALPROEX SODIUM 125 MG CAP.SPRINK PO SCH ×4 (08:05→21:21)
[2021-10-07] MEDS: THIAMINE HCL 100 MG TABLET PO SCH (08:05)
[2021-10-07] MEDS: FOLIC ACID 1 MG TABLET PO SCH (08:05)
[2021-10-07] MEDS: APIXABAN 5 MG TABLET PO SCH ×2 (08:06→16:22)
[2021-10-07] MEDS: ESCITALOPRAM OXALATE (10 MG) 10 MG TABLET PO SCH (08:06)
[2021-10-07] MEDS: CYANOCOBALAMIN 100 MCG TABLET PO SCH (08:06)
[2021-10-07] MEDS: OLANZAPINE ZYDIS 5 MG TAB.RAPDIS PO SCH (08:07)
[2021-10-07] MEDS: ENSURE ENLIVE CHOC 237 ML CAN PO SCH ×2 (08:08→17:07)
[2021-10-07] MEDS: THERAHONEY GEL 1.5 OZ TUBE TP SCH (09:17)
--- NOTE | 2021-10-07 09:36 | NUR ---
RN Notes: Received pt. asleep in bed, breathing is even and unlabored. Ate 75% breakfast and compliant on meds. Morning care rendered and pt. is cooperative to care and skin treatment done. Encouraged to take shower and encouraged to attend group activity. Needs attended and will continue to monitor for safety.
[2021-10-07 16:00] VITALS: BP 108/55
--- NOTE | 2021-10-07 19:30 | NUR ---
GPS RN NOTE, RECEIVED PATIENT AWAKE AND IN BED, NO S/S OR COMPLAINTS OF PAIN AT THIS TIME. PATIENT IS DISPLAYING NO S/S OF APPARENT DISTRESS AT THIS TIME. PATIENT BREATHING IS UNLABORED WITH EQUAL RISE AND FALL OF THE CHEST. PATIENT IS ALERT AND ORIENTED X 1-2 ON ROOM AIR WITH A SPO2 97%. PATIENT IS COMPLIANT WITH MEDICATIONS, UNMOTIVATED, PARANOID, ANXIOUS AT TIMES, AND COOPERATIVE. PATIENT DENIES SUICIDAL AND HOMICIDAL IDEATIONS AT THIS TIME. PATIENT ASSISTED WITH TURNING AND REPOSITIONING Q2HR AND PRN FOR COMFORT AND CIRCULATION. PATIENT HAS NO NEEDS AT THIS TIME. PATIENT EDUCATED ON THE USE OF THE CALL WEBB. PATIENT BED SIDE RAILS UP X 2 FOR SAFETY. PATIENT BED IS LOCKED, LOW, WITH BED ALARM ON. WILL CONTINUE TO MONITOR THIS PATIENT Q15 MINUTES WITH THE HELP OF STAFF TO MAINTAIN SAFETY.
[2021-10-07 20:07] VITALS: BP 90/56
[2021-10-07] MEDS: DOCUSATE SODIUM 100 MG CAPSULE PO SCH (21:21)
[2021-10-07] MEDS: OLANZAPINE 10 MG TABLET PO SCH (21:21)
--- NOTE | 2021-10-07 22:34 | NUR ---
GPS RN NOTE, PATIENT HAS A COMPLAINT OF INDIGESTION AND IS REQUESTING MAALOX AT THIS TIME. PATIENT VITAL SIGNS ARE STABLE. GAVE MAALOX 30 ML UNIT DOSE PO Q4HR PRN ORDERED. WILL CONTINUE TO MONITOR THIS PATIENT WITH THE HELP OF STAFF.
[2021-10-08] MEDS: GABAPENTIN 300 MG CAPSULE PO SCH ×3 (06:43→21:07)
--- NOTE | 2021-10-08 07:46 | NUR ---
RN NOTE PATIENT IS AWAKE IN BED RESTING A/O X 2. NO S/S OF PAIN NOTED AT THIS TIME. ON ROOM AIR, NO DISTRESS OR SHORTNESS OF BREATH NOTED. PATIENT IS COMPLIANT WITH MEDICATIONS. PATIENT DENIES SUICIDAL AND HOMICIDAL IDEATIONS AT THIS TIME. FALL AND SAFETY MEASURES IN PLACE, BED IN LOW AND LOCK POSITION, CALL LIGHT AND TABLE WITHIN EASY REACH, SIDE RAILS UP X2. PATIENT EDUCATED ON THE USE OF THE CALL WEBB. PATIENT HAS NO NEEDS AT THIS TIME. WILL CONTINUE TO MONITOR THIS PATIENT Q15 MINUTES TO MAINTAIN SAFETY.
[2021-10-08 08:00] VITALS: BP 99/65
[2021-10-08] MEDS: CYANOCOBALAMIN 100 MCG TABLET PO SCH (08:05)
[2021-10-08] MEDS: FOLIC ACID 1 MG TABLET PO SCH (08:06)
[2021-10-08] MEDS: THIAMINE HCL 100 MG TABLET PO SCH (08:06)
[2021-10-08] MEDS: OLANZAPINE 10 MG TABLET PO SCH (08:06)
[2021-10-08] MEDS: ESCITALOPRAM OXALATE (10 MG) 10 MG TABLET PO SCH (08:06)
[2021-10-08] MEDS: PANTOPRAZOLE 40 MG TABLET.DR PO SCH (08:06)
[2021-10-08] MEDS: DIVALPROEX SODIUM 125 MG CAP.SPRINK PO SCH ×4 (08:06→21:07)
[2021-10-08] MEDS: APIXABAN 5 MG TABLET PO SCH ×2 (08:07→17:40)
[2021-10-08] MEDS: ENSURE ENLIVE CHOC 237 ML CAN PO SCH ×2 (08:08→17:39)
[2021-10-08] MEDS: THERAHONEY GEL 1.5 OZ TUBE TP SCH (08:15)
[2021-10-08] MEDS: OLANZAPINE ZYDIS 5 MG TAB.RAPDIS PO SCH (08:15)
[2021-10-08 16:00] VITALS: BP 100/57
--- NOTE | 2021-10-08 18:22 | NUR ---
RN CLOSING NOTE PATIENT IS AWAKE IN BED RESTING A/O X 2. NO S/S OF PAIN NOTED AT THIS TIME. ON ROOM AIR, NO DISTRESS OR SHORTNESS OF BREATH NOTED. PATIENT IS COMPLIANT WITH MEDICATIONS. PATIENT DENIES SUICIDAL AND HOMICIDAL IDEATIONS AT THIS TIME. FALL AND SAFETY MEASURES IN PLACE, BED IN LOW AND LOCK POSITION, CALL LIGHT AND TABLE WITHIN EASY REACH, SIDE RAILS UP X2. PATIENT EDUCATED ON THE USE OF THE CALL WEBB. PATIENT WAS TURNED AND REPOSITIONED PER PROTOCOL. PATIENT HAS NO NEEDS AT THIS TIME. PATIENT WAS MONITOR Q15 MINUTES TO MAINTAIN SAFETY. WILL ENDORSE TO ELECTROCARDIOGRAM TECHNICIAN.
[2021-10-08 19:42] VITALS: BP 106/69
[2021-10-08 20:00] VITALS: BP 99/65
--- NOTE | 2021-10-08 20:22 | NUR ---
RN OPENING NOTES RECEIVED PT IN BED RESTING COMFORTABLE.HENRY RM AIR NO SIGN SOB/DISTRESS NOTED.NO COMPLAINED OF PAIN/DISCOMFORT.NO BEHAVIORAL CHANGES AT THIS TIME.CALL LIGHT WITHIN REACH.CONTINUE TO MONITOR.
[2021-10-08] MEDS: DOCUSATE SODIUM 100 MG CAPSULE PO SCH (21:07)
[2021-10-09] VITALS: BP 100/60
[2021-10-09] MEDS: GABAPENTIN 300 MG CAPSULE PO SCH ×3 (04:44→21:19)
[2021-10-09] MEDS: PANTOPRAZOLE 40 MG TABLET.DR PO SCH (07:30)
[2021-10-09 08:00] VITALS: BP 105/59
[2021-10-09] MEDS: ESCITALOPRAM OXALATE (10 MG) 10 MG TABLET PO SCH (08:48)
[2021-10-09] MEDS: CYANOCOBALAMIN 100 MCG TABLET PO SCH (08:48)
[2021-10-09] MEDS: THIAMINE HCL 100 MG TABLET PO SCH (08:48)
[2021-10-09] MEDS: APIXABAN 5 MG TABLET PO SCH ×2 (08:48→17:27)
[2021-10-09] MEDS: DIVALPROEX SODIUM 125 MG CAP.SPRINK PO SCH ×4 (08:49→21:19)
[2021-10-09] MEDS: OLANZAPINE ZYDIS 5 MG TAB.RAPDIS PO SCH (08:49)
[2021-10-09] MEDS: FOLIC ACID 1 MG TABLET PO SCH (08:49)
[2021-10-09] MEDS: THERAHONEY GEL 1.5 OZ TUBE TP SCH (08:50)
[2021-10-09] MEDS: ENSURE ENLIVE CHOC 237 ML CAN PO SCH ×2 (08:51→17:29)
[2021-10-09 16:00] VITALS: BP 102/57
--- NOTE | 2021-10-09 19:34 | NUR ---
GPS RN NOTE RECEIVED PATIENT SLEEPING IN BED RESTING A/O X 2. NO S/S OF PAIN NOTED AT THIS TIME. ON ROOM AIR, NO DISTRESS OR SHORTNESS OF BREATH NOTED. PATIENT IS COMPLIANT WITH MEDICATIONS. PATIENT DENIES SUICIDAL AND HOMICIDAL IDEATIONS AT THIS TIME. FALL AND SAFETY MEASURES IN PLACE, BED IN LOW AND LOCK POSITION, CALL LIGHT AND TABLE WITHIN EASY REACH, SIDE RAILS UP X2. WILL CONTINUE TO MONITOR THROUGHOUT THE SHIFT.
[2021-10-09 20:25] VITALS: BP_SYST 107; BP_SYST 99; BP_DIAS 52; BP_DIAS 54
[2021-10-09] MEDS: DOCUSATE SODIUM 100 MG CAPSULE PO SCH (21:19)
[2021-10-09] MEDS: OLANZAPINE 10 MG TABLET PO SCH (21:19)
--- NOTE | 2021-10-09 22:30 | NUR ---
RN NOTE PT COMPLAINTS HAVING DIFFICULTY BREATHING, HOB ELEVATED, V/S CHECKED BP AT 101/67 SATING 93%, INFORMED SHIRAZ CANAS MINERAL TECHNOLOGIST DOCTOR. CN MADE AWARE. WILL CONT TO MONITOR.
[2021-10-09] MEDS ORDERED: ALBUTEROL FS 2.5 MG/3 ML VIAL.NEB NEB PRN (23:00)
--- NOTE | 2021-10-09 23:02 | NUR ---
RN NOTE RT ON BESIDE FOR PT BREATHING TREATMENT. PATIENT ABLE TO TOLERATE IT WELL, HOB ELEVATED FOR MAX LUNG EXPANSION, WILL CONT TO MONITOR
[2021-10-10] MEDS: GABAPENTIN 300 MG CAPSULE PO SCH ×2 (05:07→13:55)
--- NOTE | 2021-10-10 06:08 | NUR ---
RN NOTE COVID TEST DONE; SWABBED ON THE L NARES AND SAMPLE SENT TO THE LAB.
--- NOTE | 2021-10-10 06:38 | NUR ---
GPS RN CLOSING NOTE PATIENT SLEEPING IN BED BUT EASILY AROUSABLE TO TOUCH AND VOICE, A/O X 3. NO S/S OF PAIN NOTED AT THIS TIME. ON ROOM AIR, NO DISTRESS OR SHORTNESS OF BREATH NOTED. PATIENT IS COMPLIANT WITH MEDICATIONS. ALL DUE MEDS GIVEN, PATIENT DENIES SUICIDAL AND HOMICIDAL IDEATIONS AT THIS TIME. ALL NEEDS ATTENDED. FALL AND SAFETY MEASURES IN PLACE, BED IN LOW AND LOCK POSITION, CALL LIGHT AND TABLE WITHIN EASY REACH, SIDE RAILS UP X2. WILL ENDORSE TO AM SHIFT NURSE FOR TITI.
[2021-10-10] MEDS: PANTOPRAZOLE 40 MG TABLET.DR PO SCH (07:30)
--- NOTE | 2021-10-10 07:52 | NUR ---
SW Discharge Note: Patient will be discharged to [facility] facility [facility] [address] [facility], [place] [address]; ). Please arrange transportation at 1PM. Stable Helper spoke with Wili healthcare prof at [facility]; ([phone], who stated patient will be accepted today. Patient has no supportive contact at this time. Patient is alert and oriented x2 and is unable to plan for self-care. Patient denies any suicidal or homicidal ideations. Patient is aware and agreeable with discharge plans. Patient will follow-up at the facility with Dr. Mac (psychiatrist) [address] [address]; ([phone]) and (Floor Worker [place]) Dr. Lopez [address] [facility] [address], [place] [address]; ([phone]). Patient presents with euthymic and congruent mood.
[2021-10-10 08:00] VITALS: BP 100/55
[2021-10-10] MEDS: THIAMINE HCL 100 MG TABLET PO SCH (08:34)
[2021-10-10] MEDS: CYANOCOBALAMIN 100 MCG TABLET PO SCH (08:34)
[2021-10-10] MEDS: DIVALPROEX SODIUM 125 MG CAP.SPRINK PO SCH ×2 (08:34→13:55)
[2021-10-10] MEDS: FOLIC ACID 1 MG TABLET PO SCH (08:35)
[2021-10-10] MEDS: ESCITALOPRAM OXALATE (10 MG) 10 MG TABLET PO SCH (08:35)
[2021-10-10] MEDS: OLANZAPINE ZYDIS 5 MG TAB.RAPDIS PO SCH (08:35)
[2021-10-10] MEDS: ENSURE ENLIVE CHOC 237 ML CAN PO SCH (08:35)
[2021-10-10] MEDS: THERAHONEY GEL 1.5 OZ TUBE TP SCH (08:38)
[2021-10-10] MEDS: APIXABAN 5 MG TABLET PO SCH (08:39)
--- NOTE | 2021-10-10 14:00 | NUR ---
Patient discharged to [facility] in stable condition.Compliant with medications ,cooperative with treatment plans Patient denies SI/HI/AVH .Patient refused .Behavior improved ,psychiatric tx plans met ,medical tx plans differed for for continual monitoring .Educated pt about after care plan (Exit -care)and copy provided .Returned personal belongings to patient med list given and explained to patient able to verbalize understanding, [facility] .Vs stable ,no c/o pain .Patient seen by and DNP with discharge orders .Patient discharge at 1400 with ambulance.
== END 2021-10-10 14:00 | DRG 885 ==
LOC: GPS 10:09
PROVIDERS: ADMIT Psychiatry & Neurology Psychiatry; ATTEND Nurse Practitioner Acute Care
DX: F25.1 Schizoaffective disorder, depressive type (principal); F13.20 Sedative, hypnotic or anxiolytic dependence, uncomplicated; I42.9 Cardiomyopathy, unspecified; F41.9 Anxiety disorder, unspecified; Z20.822 Contact with and (suspected) exposure to COVID-19; Z86.711 Personal history of pulmonary embolism; F29 Unspecified psychosis not due to a substance or known physiological condition; Z79.01 Long term (current) use of anticoagulants; L89.156 Pressure-induced deep tissue damage of sacral region; Z98.890 Other specified postprocedural states; Z73.6 Limitation of activities due to disability; R53.1 Weakness; R27.8 Other lack of coordination; Z91.81 History of falling; F32.9 Major depressive disorder, single episode, unspecified; G31.84 Mild cognitive impairment of uncertain or unknown etiology; E78.5 Hyperlipidemia, unspecified; Z91.19 Patient's noncompliance with other medical treatment and regimen; Z91.51 Personal history of suicidal behavior
CPT/HCPCS: 36415; 71045-TC; 80053-TC; 80061-TC; 80164-TC; 87081-TC; 97116-TC; 97530-TC; A6403

== ENCOUNTER 2021-12-08 15:16 | Inpatient (IN) | payer MEDICARE, OTHER ==
[~2021-12-08] VITALS: Ht 182.9 cm; Wt 86.2 kg
[~2021-12-08 15:16] MED LIST changes: +APIX2.5T PO
--- NOTE | 2021-12-08 15:45 | NUR ---
[facility] PT W/ HX OF DEPRESSION AND SCHIZOPHRENIA. TO ER BED 10.
[2021-12-08] MEDS ORDERED: ALBU2.5V38 IH (16:01)
[2021-12-08] MEDS ORDERED: DIVA-76 PO (16:01)
[2021-12-08] MEDS ORDERED: ESCI10TA PO (16:01)
--- NOTE | 2021-12-08 16:17 | NUR ---
COVID SWAB COLLECTED AND SENT TO LAB.
[2021-12-08 16:46] LABS: EOSINOPHILS % (AUTO) 2.5 % (0.0-6.0); HEMATOCRIT 38 % (39-51); HEMOGLOBIN 12.1 g/dL (13.5-17.5); LYMPHOCYTES # (AUTO) 1.4 K/uL (0.8-4.8); LYMPHOCYTES % (AUTO) 26.7 % (20.0-44.0); MEAN CORPUSCULAR HGB CONC 32 g/dl (31.0-36.0); MEAN CORPUSCULAR VOLUME 90 fL (80-96); MONOCYTES # (AUTO) 0.5 K/uL (0.1-1.30); MONOCYTES % (AUTO) 8.9 % (2.0-12.0); NEUTROPHILS # (AUTO) 3.1 K/uL (1.8-8.9); NEUTROPHILS % (AUTO) 60.9 % (43.0-81.0); PLATELET COUNT (AUTO) 229 K/uL (150-450); WHITE BLOOD COUNT (AUTO) 5.1 K/uL (4.3-11.0)
--- NOTE | 2021-12-08 16:47 | NUR ---
MOVE SHEET SUBMITTED.
[2021-12-08 17:52] LABS: ACETAMINOPHEN 0 ug/ml (10-30); ALANINE AMINOTRANSFERASE 13 U/L (12-78); ALBUMIN 3.2 g/dL (3.4-5.0); ALCOHOL, BLOOD < 3 mg/dL (0-0); ALKALINE PHOSPHATASE 104 U/L (46-116); ASPARTATE AMINOTRANSFERASE 10 U/L (15-37); BILIRUBIN,DIRECT 0.1 mg/dL (0.0-0.2); BILIRUBIN,TOTAL 0.2 mg/dL (0.2-1.0); CALCIUM, SERUM 8.6 mg/dL (8.5-10.1); CARBON DIOXIDE 34 mmol/L (21-32); CHLORIDE 107 mmol/L (98-107); CREATININE 0.9 mg/dL (0.6-1.3); GLUCOSE 95 mg/dL (74-106); POTASSIUM 3.9 mmol/L (3.5-5.1); SODIUM SERUM 144 mmol/L (136-145); TOTAL PROTEIN, SERUM 6.5 g/dL (6.4-8.2); UREA NITROGEN, BLOOD 17 mg/dL (7-18)
--- NOTE | 2021-12-08 18:55 | NUR ---
URINE SAMPLE COLLECTED AND SENT TO LAB
[2021-12-08 19:33] LABS: BILIRUBIN,URINE NEGATIVE (NEGATIVE); COLOR,URINE YELLOW (YELLOW); LEUKOCYTE ESTERASE ,URINE NEGATIVE (NEGATIVE); NITRITE, URINE NEGATIVE (NEGATIVE); PROTEIN,URINE NEGATIVE (NEGATIVE); UGLUCOSE NEGATIVE (NEGATIVE); UROBILINOGEN,URINE 0.2 EU/dL (0.2)
[2021-12-08 20:00] VITALS: BP 120/71
--- NOTE | 2021-12-08 20:38 | NUR ---
CALLED [facility] FOR EVAL LEFT VOICEMAIL
--- NOTE | 2021-12-08 20:44 | NUR ---
[facility] ETA 1 HOUR
--- NOTE | 2021-12-08 21:21 | NUR ---
gps 217
[2021-12-08] MEDS ORDERED: BISACODYL SUPP (10 MG) 10 MG/SUPP.RECT SUPP.RECT RC PRN (21:30)
[2021-12-08] MEDS ORDERED: POLYETHYLENE GLYCOL 3350 17 GM POWD.PACK PO PRN (21:30)
[2021-12-08] MEDS ORDERED: ACETAMINOPHEN 325 MG TABLET PO PRN (21:30)
[2021-12-08] MEDS ORDERED: ALBUTEROL FS 2.5 MG/3 ML VIAL.NEB IH PRN (21:30)
--- NOTE | 2021-12-08 21:36 | NUR ---
REPORT GIVEN TO SPENCER CUNNINGHAM.
--- NOTE | 2021-12-08 21:37 | NUR ---
PATIENT BEING TRANSFFERED TO 217 VIA EMT.
[2021-12-08] MEDS ORDERED: LORAZEPAM 0.5 MG TABLET PO PRN (22:30)
[2021-12-08] MEDS ORDERED: ZOLPIDEM TARTRATE 5 MG TABLET PO PRN (22:30)
[2021-12-08] MEDS ORDERED: MAG HYDROX/AL HYDROX/SIMETH 30 ML UDC PO PRN (22:30)
[2021-12-08] MEDS ORDERED: MAGNESIUM HYDROXIDE 30 ML UDC PO PRN (22:30)
--- NOTE | 2021-12-08 22:35 | NUR ---
RN NOTES: INSOMNIA PT. C/O UNABLE TO SLEEP , PRN AMBIEN 5 MG PO GIVEN PER PT. REQUEST,WILL CONTINUE TO MONITOR .
[2021-12-08] MEDS ORDERED: BLOOD SUGAR DIAGNOSTIC 1 EACH STRIP IN ONE (23:00)
[2021-12-08] MEDS: ACETAMINOPHEN 325 MG TABLET PO PRN (23:22)
[2021-12-09] MEDS ORDERED: Z GUARD REMEDY 4 OZ OINT TP PRN
[2021-12-09 00:49] VITALS: BP 129/71
--- NOTE | 2021-12-09 01:10 | NUR ---
RN NOTES : ADMISSION NOTES: ADMITTED THIS 62Y/O MALE PATIENT FROM [facility] ED , INITIALLY FROM [facility]. ADMITTED TO 5150 HOLD DTS , PER HOLD DUE TO DEPRESSION, HEARING VOICES AND VOICES TELLING HIM TO KILL HIM SELF. UPON FACE TO FACE ASSESSMENT PATIENT IS A&O X3, ANXIOUS ,EASILY AGITATED ,PARANOID ,DISHELVED , DENIES SI /HI AT THIS TIME, PT. IS POOR HISTORIAN, POOR INSIGHT ,POOR JUDGEMENT , BOTH MD AWARE AND NOTIFIED OF THE ADMISSION, BELONGINGS CONTRABAND WERE DONE , PT. REFUSED SIGNS ADMISSION CONSENT PAPER DUE TO TIRED, PT. REFUSED INTAILLY ACCU CHECK PER PT. I AM NOT DIABETIC, ENCOURAGEDX3 PT. STRONGLY REFUSED ,ENCOURAGED PT. TO TAKE SHOWER, PT. RIGHTS DISCUSS BY [employer] , PROVIDE THE PT. WITH HANDBOOK, AND MEDICATIONS GUIDE, ENVIRONMENTAL SAFETY CHECK DONE, ENCOURAGED PT. VERBALIZED ANY FEELING CONCERN TO STAFF, ORIENT TO UNIT POLICY, NO ACUTE DISTRESS NOTED,VITAL SIGNS WNL ,DENIES ANY PAIN AT THIS TIME,WILL CONTINUE TO MONITOR FOR Q15 SAFETY AND BEHAVIOR.
[2021-12-09] MEDS: GABAPENTIN 100 MG CAPSULE PO SCH ×3 (05:17→21:19)
--- NOTE | 2021-12-09 06:42 | NUR ---
RN NOTES: PT. DID NOT PROVIDE ANY INFORMATIONS TO NEXT OF KIN.
[2021-12-09 07:47] LABS: CALCIUM, SERUM 8.3 mg/dL (8.5-10.1); CREATININE 0.9 mg/dL (0.6-1.3); POTASSIUM 4.4 mmol/L (3.5-5.1)
[2021-12-09 08:00] VITALS: BP 95/53
[2021-12-09] MEDS: APIXABAN 5 MG TABLET PO SCH ×4 (08:29→16:21)
[2021-12-09] MEDS: CYANOCOBALAMIN 100 MCG TABLET PO SCH ×3 (08:30→09:48)
[2021-12-09] MEDS: FOLIC ACID 1 MG TABLET PO SCH ×3 (08:30→09:48)
[2021-12-09] MEDS: THIAMINE HCL 100 MG TABLET PO SCH ×3 (08:30→09:48)
--- NOTE | 2021-12-09 10:00 | NUR ---
RN Notes: Received pt. asleep in bed, breathing is even and unlabored. Refused to eat breakfast and refused meds at first and after explaining on the importance he agreed to take the meds. Per pt. he is depress, feeling helpless and hopeless, denies being homicidal and said he is suicidal with no specific plan and will work with his psychiatrist here and will contract to be safe while in the hospital. Encouraged to attend group activity and motivated to take shower. Needs attended and will continue to monitor for safety.
[2021-12-09] MEDS: ACETAMINOPHEN 325 MG TABLET PO PRN (10:43)
[2021-12-09 16:00] VITALS: BP 96/56
[2021-12-09 20:46] VITALS: BP 74/43
[2021-12-09] MEDS ORDERED: DIVALPROEX SODIUM 250 MG TABLET.DR PO SCH (21:00)
[2021-12-09] MEDS ORDERED: MIRTAZAPINE 15 MG TABLET PO SCH (22:00)
[2021-12-09] MEDS: OLANZAPINE ZYDIS 5 MG TAB.RAPDIS PO SCH (22:09)
[2021-12-09] MEDS: MIRTAZAPINE 15 MG TABLET PO SCH (22:09)
[2021-12-10] MEDS: GABAPENTIN 100 MG CAPSULE PO SCH ×3 (05:25→21:13)
[2021-12-10 06:41] LABS: BASOPHILS # (AUTO) 0.1 K/uL (0.0-0.2); BASOPHILS % (AUTO) 1.2 % (0.0-2.0); EOSINOPHILS % (AUTO) 2.4 % (0.0-6.0); HEMATOCRIT 36 % (39-51); LYMPHOCYTES # (AUTO) 1.3 K/uL (0.8-4.8); LYMPHOCYTES % (AUTO) 30.6 % (20.0-44.0); MEAN CORPUSCULAR HGB CONC 33 g/dl (31.0-36.0); MEAN CORPUSCULAR VOLUME 89 fL (80-96); MONOCYTES # (AUTO) 0.4 K/uL (0.1-1.30); NEUTROPHILS # (AUTO) 2.5 K/uL (1.8-8.9); NEUTROPHILS % (AUTO) 56.8 % (43.0-81.0); PLATELET COUNT (AUTO) 210 K/uL (150-450); RED BLOOD CELL COUNT(AUTO) 4.07 MIL/uL (4.5-6.0); WHITE BLOOD COUNT (AUTO) 4.4 K/uL (4.3-11.0)
[2021-12-10 06:54] LABS: CREATININE 0.7 mg/dL (0.6-1.3)
[2021-12-10 08:00] VITALS: BP 100/65
[2021-12-10] MEDS: THIAMINE HCL 100 MG TABLET PO SCH (08:40)
[2021-12-10] MEDS: FOLIC ACID 1 MG TABLET PO SCH (08:40)
[2021-12-10] MEDS: DIVALPROEX SODIUM 250 MG TABLET.DR PO SCH ×3 (08:40→16:54)
[2021-12-10] MEDS: CYANOCOBALAMIN 100 MCG TABLET PO SCH (08:40)
[2021-12-10] MEDS: OLANZAPINE ZYDIS 5 MG TAB.RAPDIS PO SCH ×2 (08:41→21:13)
[2021-12-10] MEDS: APIXABAN 5 MG TABLET PO SCH ×2 (08:44→16:54)
[2021-12-10] MEDS ORDERED: DIVALPROEX SODIUM 250 MG TABLET.DR PO SCH (09:00)
[2021-12-10] MEDS: ACETAMINOPHEN 325 MG TABLET PO PRN (14:18)
[2021-12-10 16:00] VITALS: BP 100/59
--- NOTE | 2021-12-10 19:30 | NUR ---
GPS RN NOTE PATIENT RESTING IN BED, A/O X3. DISORGANIZED,NEEDY, COOPERATIVE, ANXIOUS, REDIRECTABLE AT THIS TIME. NO ACUTE DISTRESS NOTED. DENIES SI/HI AT THIS TIME.HIGH FALL RISK. SAFETY PRECAUTIONS IN PLACE. WILL CONTINUE TO MONITOR Q15MIN FOR SAFETY AND BEHAVIOR.
[2021-12-10 19:59] VITALS: BP 106/52
[2021-12-10 20:00] VITALS: BP 106/52
[2021-12-10] MEDS: MIRTAZAPINE 15 MG TABLET PO SCH (21:13)
[2021-12-11] MEDS: GABAPENTIN 100 MG CAPSULE PO SCH ×3 (05:32→22:03)
[2021-12-11 08:00] VITALS: BP 100/63
[2021-12-11] MEDS: DIVALPROEX SODIUM 250 MG TABLET.DR PO SCH ×3 (09:11→16:36)
[2021-12-11] MEDS: THIAMINE HCL 100 MG TABLET PO SCH (09:11)
[2021-12-11] MEDS: CYANOCOBALAMIN 100 MCG TABLET PO SCH (09:11)
[2021-12-11] MEDS: FOLIC ACID 1 MG TABLET PO SCH (09:11)
[2021-12-11] MEDS: OLANZAPINE ZYDIS 5 MG TAB.RAPDIS PO SCH ×2 (09:11→22:00)
[2021-12-11] MEDS: APIXABAN 5 MG TABLET PO SCH ×2 (09:13→16:37)
--- NOTE | 2021-12-11 10:30 | NUR ---
Treatment Plan: Pt refused to sign treatment plan and had his blanket covered. Pt did not want to speak.
--- NOTE | 2021-12-11 10:30 | NUR ---
TAN Initial Discharge Note: Pt currently [facility] [address] [place] [address]; ). TAN spoke with Wili torres who stated that pt is welcomed back upon dc. TAN will work with the MD, treatment team, and family to help coordinate appropriate discharge.
--- NOTE | 2021-12-11 10:30 | NUR ---
SW Family Contact: Pt does not have any supportive contact at this time.
--- NOTE | 2021-12-11 11:19 | NUR ---
TAN Clinical Note: Pt placed on a 5150 hold for danger to himself. Pt currently resides at [facility] and was depressed at the facility. Pt currently [facility] [address] [address] [facility], [place] [address]; ).
[2021-12-11] MEDS: PAROXETINE HCL 10 MG TABLET PO SCH (11:21)
[2021-12-11 16:00] VITALS: BP 108/58
[2021-12-11 19:53] VITALS: BP 101/58
[2021-12-11 20:05] VITALS: BP 101/58
--- NOTE | 2021-12-11 21:15 | NUR ---
PATIENT WAS OFFERED SNACK AND JUICES MULTIPLE TIMES BUT PATIENT REFUSED EACH TIME AND WANTED TO SLEEP. WILL CONTINUE TO MONITOR.
--- NOTE | 2021-12-11 22:08 | NUR ---
RN NOTE: PATIENT WAS OFFERED NEURONTIN EARLIER SCHEDULED BUT PATIENT STATED," LATER" AND REFUSED TO TAKE MEDICINE AT THAT TIME." OFFERED MEDICINE AT THIS TIME AGAIN AND PATIENT AGREED TO TAKE GABAPENTIN ONLY AT THIS TIME.
--- NOTE | 2021-12-11 22:30 | NUR ---
RN NOTE: PATIENT REFUSED ZYPREXA ZYDIS 15 MG AT THIS TIME, PATIENT STATED," I FEEL VERY SLEEPY, I DON'T WANT IT." PATIENT IS NOTED TO BE SLEEPY AND CONTINUED TO REFUSE MEDICATION SCHEDULED.
[2021-12-12] MEDS: GABAPENTIN 100 MG CAPSULE PO SCH ×3 (05:30→21:13)
[2021-12-12 08:00] VITALS: BP 98/55
[2021-12-12] MEDS: FOLIC ACID 1 MG TABLET PO SCH (08:34)
[2021-12-12] MEDS: CYANOCOBALAMIN 100 MCG TABLET PO SCH (08:34)
[2021-12-12] MEDS: THIAMINE HCL 100 MG TABLET PO SCH (08:34)
[2021-12-12] MEDS: DIVALPROEX SODIUM 250 MG TABLET.DR PO SCH ×3 (08:34→16:24)
[2021-12-12] MEDS: OLANZAPINE ZYDIS 5 MG TAB.RAPDIS PO SCH ×2 (08:34→22:27)
[2021-12-12] MEDS: APIXABAN 5 MG TABLET PO SCH ×2 (08:38→16:26)
--- NOTE | 2021-12-12 09:00 | NUR ---
RN NOTE- ASLEEP THOUGH EASILY AWAKENED. MED COMPLIANT, WITHDRAWN ISOLATIVE, PARANOID
[2021-12-12] MEDS: PAROXETINE HCL 10 MG TABLET PO SCH (10:14)
[2021-12-12 16:00] VITALS: BP 102/56
[2021-12-12 20:30] VITALS: BP 101/52
--- NOTE | 2021-12-12 20:50 | NUR ---
RN NOTE: REFUSED SNACK PATIENT WAS ENCOURAGED AND OFFERED SNACK/JUICES MULTIPLE TIMES BUT PATIENT REFUSED EACH TIME AND WANTED TO BE LEFT ALONE. PATIENT BECAME IRRITABLE, ANXIOUS, VERBALLY AGGRESSIVE AND STATED," EITHER YOU LEAVE THIS ROOM OR YOU FLY." PATIENT IS UNCOOPERATIVE AT THIS TIME.
[2021-12-13] MEDS: GABAPENTIN 100 MG CAPSULE PO SCH ×3 (05:10→21:38)
--- NOTE | 2021-12-13 07:30 | NUR ---
GPS RN OPENING NOTE PATIENT IS IN BED, ASLEEP BUT EASILY AROUSABLE. BREATHING UNLABORED AND NOT IN ANY FORM OF DISTRESS. HIGH FALL RISK. ALL HOSPITAL SAFETY PRECAUTIONS KEPT IN PLACE. WILL CONTINUE TO MONITOR THROUGHOUT SHIFT.
[2021-12-13 08:00] VITALS: BP 94/52
[2021-12-13] MEDS: CYANOCOBALAMIN 100 MCG TABLET PO SCH (09:07)
[2021-12-13] MEDS: THIAMINE HCL 100 MG TABLET PO SCH (09:08)
[2021-12-13] MEDS: PAROXETINE HCL 10 MG TABLET PO SCH (09:08)
[2021-12-13] MEDS: DIVALPROEX SODIUM 250 MG TABLET.DR PO SCH ×4 (09:08→21:57)
[2021-12-13] MEDS: FOLIC ACID 1 MG TABLET PO SCH (09:08)
[2021-12-13] MEDS: OLANZAPINE ZYDIS 5 MG TAB.RAPDIS PO SCH ×2 (09:08→22:00)
[2021-12-13] MEDS: APIXABAN 5 MG TABLET PO SCH ×2 (09:12→16:26)
[2021-12-13 16:00] VITALS: BP 86/54
--- NOTE | 2021-12-13 18:54 | NUR ---
RN CLOSING NOTE PATIENT'S VITAL SIGNS REMAINED STABLE THROUGHOUT SHIFT. HE, HOWEVER, REMAINED QUIET IN BED AND REFUSED TO PARTICIPATE IN GROUP ACTIVITY. ALL OF HIS NEEDS WERE ATTENDED TO AND ALL HOSPITAL SAFETY PRECAUTIONS WERE KEPT IN PLACE.WILL ENDORSE TO TRUCK DRIVING NURSE.
[2021-12-13 20:00] VITALS: BP 80/45
[2021-12-13 22:40] VITALS: BP 90/54
--- NOTE | 2021-12-13 23:01 | NUR ---
RN NOTE: PATIENT'S BP NOTED TO BE 90/54, 68, 18, 96% AT ROOM AIR. PATIENT IS EATING SNACK AND HAD PLENTY OF JUICE, TOLERATED WELL. HELD ZYPREXA 15 MG SCHEDULED TO PREVENT HYPOTENSION. PATIENT IS ASYMPTOMATIC, COOPERATIVE, CALM/RELAXED AT THIS TIME AND WILL CONTINUE TO MONITOR FOR ANY CHANGE OF CONDITION.
[2021-12-14] MEDS: GABAPENTIN 100 MG CAPSULE PO SCH ×3 (05:43→21:29)
[2021-12-14 08:00] VITALS: BP 99/59
[2021-12-14] MEDS: CYANOCOBALAMIN 100 MCG TABLET PO SCH (08:59)
[2021-12-14] MEDS: APIXABAN 5 MG TABLET PO SCH ×2 (08:59→16:18)
[2021-12-14] MEDS: FOLIC ACID 1 MG TABLET PO SCH (09:00)
[2021-12-14] MEDS: PAROXETINE HCL 10 MG TABLET PO SCH (09:00)
[2021-12-14] MEDS: OLANZAPINE ZYDIS 5 MG TAB.RAPDIS PO SCH ×2 (09:00→21:29)
[2021-12-14] MEDS: THIAMINE HCL 100 MG TABLET PO SCH (09:00)
[2021-12-14] MEDS: DIVALPROEX SODIUM 250 MG TABLET.DR PO SCH ×4 (09:00→21:28)
--- NOTE | 2021-12-14 09:35 | NUR ---
Court Notification: Pt does not have any supportive contact at this time.
--- NOTE | 2021-12-14 11:39 | NUR ---
Court Hearing: Pt's court hearing for 5250 was today and it was upheld for GD.
[2021-12-14 16:00] VITALS: BP 100/59
--- NOTE | 2021-12-14 17:17 | NUR ---
RN CLOSING NOTE PATIENT'S VITAL SIGNS REMAINED STABLE THROUGHOUT SHIFT. PT REMAINED QUIET IN BED AND REFUSED TO PARTICIPATE IN GROUP ACTIVITY. READ BOOKS ALL DAY AND SLEPT WITH COVER OVER FACE FOR MAJORITY OF SHIFT. ALL OF THE PT'S NEEDS WERE ATTENDED TO AND ALL HOSPITAL SAFETY PRECAUTIONS WERE KEPT IN PLACE. WILL ENDORSE TO CORE PASTER NURSE FOR TITI.
--- NOTE | 2021-12-14 19:15 | NUR ---
GPS RN NOTES PATIENT IS RESTING IN BED COMFORTABLY. A/OX3. NO S/SX OF ACUTE DISTRESS NOTED. PATIENT REMAINS ISOLATIVE, DEPRESSED, NO INTERACTIONS WITH PEERS, DISHEVELED. DENIES SI/HI AT THIS TIME. ENCOURAGED PATIENT TO ATTEND IN GROUP ACTIVITIES. SAFETY MEASURES IN PLACE. WILL CONTINUE TO MONITOR Q15MIN ROUNDS FOR SAFETY AND BEHAVIOR.
[2021-12-14 20:00] VITALS: BP 93/53
[2021-12-15] MEDS: GABAPENTIN 100 MG CAPSULE PO SCH ×3 (05:44→21:13)
[2021-12-15 08:00] VITALS: BP 90/60
[2021-12-15] MEDS: THIAMINE HCL 100 MG TABLET PO SCH (08:31)
[2021-12-15] MEDS: PAROXETINE HCL 10 MG TABLET PO SCH (08:32)
[2021-12-15] MEDS: FOLIC ACID 1 MG TABLET PO SCH (08:32)
[2021-12-15] MEDS: OLANZAPINE ZYDIS 5 MG TAB.RAPDIS PO SCH ×2 (08:32→21:13)
[2021-12-15] MEDS: CYANOCOBALAMIN 100 MCG TABLET PO SCH (08:32)
[2021-12-15] MEDS: APIXABAN 5 MG TABLET PO SCH ×2 (08:33→17:06)
[2021-12-15] MEDS: DIVALPROEX SODIUM 250 MG TABLET.DR PO SCH ×4 (08:35→21:13)
[2021-12-15 16:00] VITALS: BP 107/69
--- NOTE | 2021-12-15 19:26 | NUR ---
RN OPENING NOTES PATIENT IN BED, EYES CLOSED, EASILY AWAKENED. A/OX 3 AT THIS TIME. PATIENT IS ON RA, TOLERATING WELL. NO SOB NOTED OR ANY RESPIRATORY DISTRESS. PATIENT SEEMS ISOLATIVE, ONLY INTERACTS WHEN INITIATED. DENIES SI/HI AT THIS TIME. SAFETY MEASURES IN PLACE: BED LOCKED AND IN LOWEST POSITION, BED ALARM ON. WILL CONTINUE TO MONITOR Q15MIN ROUNDS FOR SAFETY AND BEHAVIOR.
[2021-12-15 20:00] VITALS: BP 91/56
[2021-12-16] MEDS: GABAPENTIN 100 MG CAPSULE PO SCH ×3 (05:00→21:24)
--- NOTE | 2021-12-16 05:34 | NUR ---
GPS RN NOTE, PATIENT REFUSED GABAPENTIN 300MG PO Q8HR. OFFERED THREE TIMES AND STILL PATIENT REFUSED STATING, " NO I'M JUST LEAVE ME ALONE ". EDUCATED PATIENT ON THE RISKS AND BENEFITS OF TAKING AND REFUSING GABAPENTIN. WILL CONTINUE TO MONITOR THIS PATIENT WITH THE HELP OF STAFF.
[2021-12-16 08:00] VITALS: BP 95/59
[2021-12-16] MEDS: CYANOCOBALAMIN 100 MCG TABLET PO SCH (08:44)
[2021-12-16] MEDS: THIAMINE HCL 100 MG TABLET PO SCH (08:44)
[2021-12-16] MEDS: PAROXETINE HCL 10 MG TABLET PO SCH (08:44)
[2021-12-16] MEDS: DIVALPROEX SODIUM 250 MG TABLET.DR PO SCH ×4 (08:44→21:24)
[2021-12-16] MEDS: OLANZAPINE ZYDIS 5 MG TAB.RAPDIS PO SCH ×2 (08:45→21:25)
[2021-12-16] MEDS: FOLIC ACID 1 MG TABLET PO SCH (08:45)
[2021-12-16] MEDS: APIXABAN 5 MG TABLET PO SCH ×2 (08:46→16:53)
[2021-12-16 16:00] VITALS: BP 94/58
--- NOTE | 2021-12-16 19:01 | NUR ---
RN-NOTES PATIENT ISOLATIVE IN HER ROOM LYING IN BED INTERMITTENTLY SLEEPING,GUARDED,NO ACUTE DISTRESS NOTED.DENIES SI/HI . COMPLIANT WITH MEDICATIONS.AMBULATORY TO THE BATHROOM. ALL NEEDS ATTENDED AND ANTICIPATED.WILL CONT. MONITORING FOR SAFETY AND BEHAVIOR. WILL ENDORSE TO INCOMING NURSE FOR CONTINUITY OF CARE.
[2021-12-16 20:15] VITALS: BP 99/56
[2021-12-17] MEDS: GABAPENTIN 100 MG CAPSULE PO SCH ×3 (05:11→20:42)
--- NOTE | 2021-12-17 07:30 | NUR ---
GPS RN OPENING NOTE RECEIVED PATIENT IN BED AWAKE . ROOM AIR AND NO SOB OR DISTRESS NOTED . ALL HOSPITAL SAFETY PRECAUTIONS KEPT IN PLACE. SR UP X 2 WILL CONTINUE TO MONITOR PATIENT .
[2021-12-17 08:00] VITALS: BP 99/59
[2021-12-17] MEDS: FOLIC ACID 1 MG TABLET PO SCH (09:21)
[2021-12-17] MEDS: DIVALPROEX SODIUM 250 MG TABLET.DR PO SCH ×4 (09:21→21:12)
[2021-12-17] MEDS: CYANOCOBALAMIN 100 MCG TABLET PO SCH (09:21)
[2021-12-17] MEDS: OLANZAPINE ZYDIS 5 MG TAB.RAPDIS PO SCH ×2 (09:21→21:13)
[2021-12-17] MEDS: PAROXETINE HCL 10 MG TABLET PO SCH (09:22)
[2021-12-17] MEDS: APIXABAN 5 MG TABLET PO SCH ×2 (09:23→17:08)
[2021-12-17] MEDS: THIAMINE HCL 100 MG TABLET PO SCH (09:25)
[2021-12-17 16:00] VITALS: BP 101/62
--- NOTE | 2021-12-17 18:26 | NUR ---
GPS RN CLOSING NOTES PATIENT RESTING IN BED. AWAKE, A/O X1, VERBALLY RESPONSIVE.DUE MEDS GIVEN ORDERED AND COMPLIANT WITH CARE , AMBULATE AD JENNIFER NO SIGNS OF ACUTE RESPIRATORY DISTRESS NOTED. PATIENT COOPERATIVE, PLEASANTLY CONFUSED, REDIRECTABLE. SAFETY MEASURES MAINTAINED. BED IN LOWEST AND LOCKED POSITION, SIDE RAILS UP, ENDORSED TO NEXT SHIFT
[2021-12-17 20:13] VITALS: BP 103/62
--- NOTE | 2021-12-17 20:27 | NUR ---
RN NOTES: PATIENT RESTING IN BED, AWAKE, ALERT. DISORGANIZED,NEEDY , EASILY AGITATED, IRRITABLE, PARANOID, ANXIOUS, ISOLATIVE REDIRECTABLE AT THIS TIME. NO ACUTE DISTRESS NOTED. DENIES SI/HI AT THIS TIME.HIGH FALL RISK. SAFETY MEASURES IN PLACE. WILL CONTINUE TO MONITOR Q 15 MIN FOR SAFETY AND BEHVAIOR.
--- NOTE | 2021-12-18 01:47 | NUR ---
RN NOTES: REFUSED SKIN ASESSMENT PT. REFUSED WEEKLY SKIN ASSESSMENT AND PHOTOS TAKEN , PER PT. MY SKIN IS FINE , NO NEED TO BE ASSESS , ENCOURAGED X3 BUT PT. STRONGLY REFUSED.
[2021-12-18] MEDS: GABAPENTIN 100 MG CAPSULE PO SCH ×3 (05:13→21:44)
[2021-12-18 08:00] VITALS: BP 103/55
[2021-12-18] MEDS: THIAMINE HCL 100 MG TABLET PO SCH (09:17)
[2021-12-18] MEDS: CYANOCOBALAMIN 100 MCG TABLET PO SCH (09:18)
[2021-12-18] MEDS: DIVALPROEX SODIUM 250 MG TABLET.DR PO SCH ×4 (09:18→21:43)
[2021-12-18] MEDS: PAROXETINE HCL 10 MG TABLET PO SCH (09:18)
[2021-12-18] MEDS: FOLIC ACID 1 MG TABLET PO SCH (09:18)
[2021-12-18] MEDS: APIXABAN 5 MG TABLET PO SCH ×2 (09:21→17:38)
[2021-12-18] MEDS: OLANZAPINE ZYDIS 5 MG TAB.RAPDIS PO SCH ×2 (09:23→21:44)
[2021-12-18 16:00] VITALS: BP 100/58
--- NOTE | 2021-12-18 19:15 | NUR ---
GPS RN NOTES PATIENT IN BED AWAKE, ALERT AND ORIENTED X3. NO S/SX OF ACUTE DISTRESS NOTED. PATIENT REMAINS ISOLATIVE, WITHDRAWN AND DISHEVELED. DENIES SI/HI AT THIS TIME. ENCOURAGED PATIENT TO ATTEND IN GROUP ACTIVITIES. SAFETY PRECAUTIONS IN PLACE. WILL CONTINUE TO MONITOR Q15MIN ROUNDS FOR SAFETY AND BEHAVIOR.
[2021-12-18 19:59] VITALS: BP 99/52
[2021-12-19] MEDS: GABAPENTIN 100 MG CAPSULE PO SCH ×2 (05:13→12:10)
--- NOTE | 2021-12-19 07:55 | NUR ---
SW Discharge Note: Patient will be discharged to assisted facility [facility] [address] [facility], [place] [address]; ). Please arrange transportation at 1PM. Head Of Art spoke with Wili car sales representative at [facility]; ([phone], who stated patient will be accepted today. Patient has no supportive contact at this time. Patient is alert and oriented x2 and is unable to plan for self-care. Patient denies any suicidal or homicidal ideations. Patient is aware and agreeable with discharge plans. Patient will follow-up at the facility with Dr. Mac (psychiatrist) [address] [address]; ([phone]) and (Wire Preparation Worker) Dr. Lopez [address] [facility] [address], [place] [address]; ([phone]). Patient presents with euthymic and congruent mood.
[2021-12-19 08:00] VITALS: BP 122/53
[2021-12-19] MEDS: THIAMINE HCL 100 MG TABLET PO SCH (08:40)
[2021-12-19] MEDS: CYANOCOBALAMIN 100 MCG TABLET PO SCH (08:41)
[2021-12-19] MEDS: PAROXETINE HCL 10 MG TABLET PO SCH (08:41)
[2021-12-19] MEDS: OLANZAPINE ZYDIS 5 MG TAB.RAPDIS PO SCH (08:41)
[2021-12-19] MEDS: DIVALPROEX SODIUM 250 MG TABLET.DR PO SCH ×2 (08:41→12:10)
[2021-12-19] MEDS: FOLIC ACID 1 MG TABLET PO SCH (08:41)
[2021-12-19] MEDS: APIXABAN 5 MG TABLET PO SCH (08:44)
--- NOTE | 2021-12-19 10:51 | NUR ---
RN NOTES CALLED HOLLACHELLE MINOR AT 1051 AM AND GAVE REPORT TO ANSLEY BY PHONE NUMBER [phone].
--- NOTE | 2021-12-19 13:18 | NUR ---
GENERAL CAR YARD SUPERVISOR NOTES DISCHARGE PATIENT IN STABLE CONDITION MEDICALLY AND PSYCHOLOGICALLY. ALL THE DISCHARGE INSTRUCTIONS AND MEDICATION LIST REPORTED TO ANSLEY THE RN OF THE [facility] FACILITY. ALL THE BELONGINGS ACCOUNTED FOR. NO BELONGINGS NOTED EXCEPT EYE GLASSES. PATIENT DENIES ANY SI/HI AT THIS TIME. PATIENT CLEARED BY DR SWENSON, THE PATIENT WILL HAVE FOLLOW UP APPOINTMENT AT THE FACILITY WITH DR SWENSON AND DR DOHERTY. ALL NEEDS ATTENDED. 2 MT PRESENTED AND TRANSFERRED THE PATIENT TO [facility] AT 1318. PATIENT LEFT HOSPITAL IN STABLE CONDITION. MD AND CHARGE NURSE AWARE OF THE DISCHARGE.
== END 2021-12-19 13:20 | DRG 885 ==
LOC: ER 15:21 → GPS 21:31
PROVIDERS: ADMIT Psychiatry & Neurology Psychiatry; ATTEND Nurse Practitioner Acute Care
DX: F25.1 Schizoaffective disorder, depressive type (principal); E44.1 Mild protein-calorie malnutrition; R45.851 Suicidal ideations; I42.9 Cardiomyopathy, unspecified; Z86.711 Personal history of pulmonary embolism; F41.9 Anxiety disorder, unspecified; Z79.51 Long term (current) use of inhaled steroids; Z79.01 Long term (current) use of anticoagulants; Z79.899 Other long term (current) drug therapy; E78.5 Hyperlipidemia, unspecified; E88.09 Other disorders of plasma-protein metabolism, not elsewhere classified; I10 Essential (primary) hypertension; Z91.51 Personal history of suicidal behavior; Z20.822 Contact with and (suspected) exposure to COVID-19
CPT/HCPCS: 36415; 80048-TC; 80061-TC; 80076-TC; 80164-TC; 82565-TC; 85025-TC; 87081-TC; 97112-TC; 97530-TC; C9803; G0480

== ENCOUNTER 2022-08-15 18:01 | Inpatient (IN) | payer MEDICARE, OTHER ==
[~2022-08-15] VITALS: Ht 182.9 cm; Wt 82.6 kg
[~2022-08-15 18:01] MED LIST changes: +ALBU2.5V38 IH; -APIX2.5T PO; -BENZ1TAB7 PO; -DIVA-78 PO; -DOCU-141 PO; -HALO5SYR IM; -HALO5TAB8 PO; -LORA-259 PO; -MELA3TAB41 PO; -MORP2VIA IV; -ONDA4VIA52 IV; -PANT40TA2 PO
[2022-08-15] MEDS ORDERED: clonazePAM 0.5 MG TABLET PO PRN (18:30)
[2022-08-15] MEDS ORDERED: TEMAZEPAM 7.5 MG CAPSULE PO PRN (18:30)
[2022-08-15] MEDS ORDERED: MAG HYDROX/AL HYDROX/SIMETH 30 ML UDC PO PRN (18:30)
[2022-08-15] MEDS ORDERED: ACETAMINOPHEN 325 MG TABLET PO PRN (18:30)
[2022-08-15 19:02] VITALS: BP 102/66
--- NOTE | 2022-08-15 19:05 | NUR ---
RN NOTE: ADMITTED A 62-Y/O, MALE, PATIENT CAME FROM [facility]. ADMITTED ON A 5150 HOLD FOR DTS. PER HOLD, PT. REPORTS THOUGHTS OF SUICIDE "I WISH I CAN SLEEP AND WAKE UP NO MORE". UPON FACE TO FACE EVALUATION, PATIENT IS ALERT AND ORIENTED X3, APPEARS TO BE DEPRESSED, FLAT AFFECT, ANXIOUS AND GUARDED. PATIENT DENIES SI/HI/AVH AT THIS TIME. VERBALIZATION OF FEELINGS ENCOURAGED. SKIN ASSESSMENT DONE. ALL BELONGINGS WERE CHECKED FOR CONTRABAND. PATIENT'S RIGHTS WERE DISCUSSED AND BOOKLET WAS GIVEN. CONTACTED DR. SWAIN AND HOSPITALIST OBJECT ORIENTED PROGRAMMER [facility] AND INFORMED THEM OF THE ADMISSION. BED IN LOW AND LOCKED POSITION. SAFETY PRECAUTIONS MAINTAINED. WILL CONTINUE TO MONITOR Q15 MINS FOR MOOD, SAFETY AND BEHAVIOR.
[2022-08-15] MEDS ORDERED: POLYETHYLENE GLYCOL 3350 17 GM POWD.PACK PO PRN (20:00)
[2022-08-15] MEDS ORDERED: BISACODYL SUPP (10 MG) 10 MG/SUPP.RECT SUPP.RECT RC PRN (20:00)
[2022-08-15] MEDS ORDERED: ALBUTEROL FS 2.5 MG/3 ML VIAL.NEB NEB PRN (20:00)
[2022-08-15 20:09] VITALS: BP 98/63
[2022-08-15] MEDS: GABAPENTIN 300 MG CAPSULE PO SCH (21:35)
[2022-08-16] MEDS: GABAPENTIN 300 MG CAPSULE PO SCH ×3 (05:14→21:40)
[2022-08-16 07:37] LABS: ALBUMIN 3.5 g/dL (3.4-5.0); BILIRUBIN,TOTAL 0.3 mg/dL (0.2-1.0); CALCIUM, SERUM 9.1 mg/dL (8.5-10.1); CREATININE 0.8 mg/dL (0.6-1.3); POTASSIUM 4.4 mmol/L (3.5-5.1); TOTAL PROTEIN, SERUM 6.3 g/dL (6.4-8.2)
[2022-08-16 08:00] VITALS: BP 96/60
[2022-08-16] MEDS: CYANOCOBALAMIN 100 MCG TABLET PO SCH (08:28)
[2022-08-16] MEDS: FOLIC ACID 1 MG TABLET PO SCH (08:30)
[2022-08-16] MEDS: THIAMINE HCL 100 MG TABLET PO SCH (08:30)
[2022-08-16] MEDS: APIXABAN 5 MG TABLET PO SCH ×2 (08:30→16:25)
[2022-08-16] MEDS ORDERED: TEMAZEPAM 7.5 MG CAPSULE PO PRN ×2 (09:30→21:00)
[2022-08-16] MEDS ORDERED: clonazePAM 0.5 MG TABLET PO PRN ×2 (09:30→10:19)
[2022-08-16] MEDS: DIVALPROEX SODIUM 125 MG TABLET.DR PO SCH ×2 (09:41→21:41)
[2022-08-16] MEDS ORDERED: PARO20TA7 PO (10:16)
[2022-08-16] MEDS ORDERED: DIVA-76 PO (10:16)
[2022-08-16] MEDS ORDERED: OLAN15TA3 PO (10:16)
[2022-08-16] MEDS ORDERED: ZOLP5TAB8 PO (10:16)
[2022-08-16] MEDS ORDERED: OLAN10TA3 PO (10:16)
[2022-08-16] MEDS ORDERED: DIVALPROEX SODIUM 125 MG TABLET.DR PO SCH (10:19)
[2022-08-16] MEDS ORDERED: PAROXETINE HCL 20 MG TABLET PO SCH (10:19)
--- NOTE | 2022-08-16 11:15 | NUR ---
RN Notes: Received pt. awake in bed, quiet and responsive to staffs, no distress and no agitation noted. Pt. ate 100% for breakfast and seen by Tavares Blanca (hydroelectric component machinist) and compliant on tne new ordered med. Pt. denies suicidal at this time, denies auditory and visual hallucination and said he id depressed. Encouraged to verbalize feelings and motivated to attend group activity. Needs attended and will continue to monitor for safety.
--- NOTE | 2022-08-16 14:27 | NUR ---
TAN Clinical Note: Pt placed on a 5150 hold for danger to himself. Per hold, he has been having thoughts of wanting to and wanting to stab himself in the stomach. Patient currently resides at [address] [place], [place] [id number] . SW contacted the facility and left a voicemail to gather collateral. Pt has no supportive contact at this time.
--- NOTE | 2022-08-16 14:27 | NUR ---
TAN Initial Discharge Note: Patient currently resides at [address] [place], [place] [id number] . SW contacted the facility and left a voicemail to gather collateral. Pt has no supportive contact at this time. TAN will work with the MD, treatment team, and family to help coordinate appropriate discharge.
--- NOTE | 2022-08-16 14:32 | NUR ---
Social Work Note/Substance Abuse Intervention: Patient was provided with a brief substance abuse intervention and referred to [facility] ([phone]), [facility] ([phone]), and [facility] ([phone]) for smoking.
[2022-08-16 16:00] VITALS: BP 94/62
--- NOTE | 2022-08-16 19:30 | NUR ---
GPS RN NOTE, RECEIVED PATIENT AWAKE AND IN BED, NO S/S OR COMPLAINTS OF PAIN AT THIS TIME. PATIENT IS DISPLAYING NO S/S OF APPARENT DISTRESS AT THIS TIME. PATIENT BREATHING IS UNLABORED WITH EQUAL RISE AND FALL OF THE CHEST. PATIENT IS ALERT AND ORIENTED X 2 ON ROOM AIR WITH A SPO2 98%. PATIENT IS COMPLIANT WITH MEDICATIONS, CALM, POLITE, MAKES NEEDS KNOWN, RELIGIOUSLY PREOCCUPIED AND COOPERATIVE. PATIENT DENIES SUICIDAL AND HOMICIDAL IDEATIONS AT THIS TIME. PATIENT ASSISTED WITH TURNING AND REPOSITIONING Q2HR AND PRN FOR COMFORT AND CIRCULATION. PATIENT HAS NO NEEDS AT THIS TIME. PATIENT EDUCATED ON THE USE OF THE CALL WEBB. PATIENT BED SIDE RAILS UP X 2 FOR SAFETY. PATIENT BED IS LOCKED, LOW, WITH BED ALARM ON. WILL CONTINUE TO MONITOR THIS PATIENT Q15 MINUTES WITH THE HELP OF STAFF TO MAINTAIN SAFETY.
[2022-08-16 20:00] VITALS: BP 96/59
[2022-08-16] MEDS: PAROXETINE HCL 20 MG TABLET PO SCH (21:40)
[2022-08-16] MEDS: OLANZAPINE 10 MG TABLET PO SCH (21:41)
[2022-08-16] MEDS ORDERED: OLANZAPINE 10 MG TABLET PO SCH (22:00)
[2022-08-17] MEDS: GABAPENTIN 300 MG CAPSULE PO SCH ×3 (05:40→21:32)
[2022-08-17 08:00] VITALS: BP 106/67
[2022-08-17] MEDS: APIXABAN 5 MG TABLET PO SCH ×2 (08:41→16:20)
[2022-08-17] MEDS: DIVALPROEX SODIUM 125 MG TABLET.DR PO SCH ×2 (08:41→21:32)
[2022-08-17] MEDS: FOLIC ACID 1 MG TABLET PO SCH (08:41)
[2022-08-17] MEDS: THIAMINE HCL 100 MG TABLET PO SCH (08:41)
[2022-08-17] MEDS: CYANOCOBALAMIN 100 MCG TABLET PO SCH (08:42)
--- NOTE | 2022-08-17 09:55 | NUR ---
RN Notes: Received pt. awake in bed, responsive to staffs and pleasant upon approached. Ate 100% for breakfast and compliant on meds. Pt. denies suicidal and with depressed mood. Encouraged to verbalize feelings and motivated to attend group activity. Needs attended and will continue to monitor for safety.
[2022-08-17 16:00] VITALS: BP 102/58
[2022-08-17 20:00] VITALS: BP 102/67
--- NOTE | 2022-08-17 20:17 | NUR ---
RN OPENING NOTES RECEIVED PATIENT N BED, LYING ON BED ASLEEP. A/O X 3. COOPERATIVE BUT APPEARED TO BE DEPRESSED AND GUARDED. NO THOUGHTS OF SUICIDE NOTED. NO PAIN OR DISCOMFORT NOTED. NO SOB OR DISTRESS NOTED. SUICIDE PRECAUTIONS MAINTAINED. SAFETY MEASURES IN PLACED. KEPT BED ON LOWER LOCKED POSITION , KEPT SIDE RAILS X 3 ALL THE TIME. ENCOURAGE TO VERBALIZE FEELING. WILL CONTINUE TO MONITOR.
[2022-08-17] MEDS: OLANZAPINE 10 MG TABLET PO SCH (21:32)
[2022-08-17] MEDS: PAROXETINE HCL 20 MG TABLET PO SCH (21:32)
[2022-08-18] MEDS: GABAPENTIN 300 MG CAPSULE PO SCH ×3 (05:03→21:32)
[2022-08-18 08:00] VITALS: BP 118/70
[2022-08-18] MEDS: DIVALPROEX SODIUM 125 MG TABLET.DR PO SCH ×2 (08:14→21:32)
[2022-08-18] MEDS: FOLIC ACID 1 MG TABLET PO SCH (08:15)
[2022-08-18] MEDS: THIAMINE HCL 100 MG TABLET PO SCH (08:15)
[2022-08-18] MEDS: APIXABAN 5 MG TABLET PO SCH ×2 (08:15→16:40)
[2022-08-18] MEDS: CYANOCOBALAMIN 100 MCG TABLET PO SCH (08:16)
--- NOTE | 2022-08-18 09:15 | NUR ---
RN Notes: Received pt. asleep in bed, breathing is even and unlabored. Ate 100% for breakfast and compliant on meds. Encouraged to verbalize feelings and encouraged to attend group activities. Needs attended and will continue to monitor for safety.
[2022-08-18 16:00] VITALS: BP 98/57
[2022-08-18 20:00] VITALS: BP 105/67
--- NOTE | 2022-08-18 20:31 | NUR ---
FIGURE CLERK NOTE, RECEIVED PATIENT AWAKE AND IN BED, NO S/S OR COMPLAINTS OF PAIN AT THIS TIME. PATIENT IS DISPLAYING NO S/S OF APPARENT DISTRESS AT THIS TIME. PATIENT BREATHING IS UNLABORED WITH EQUAL RISE AND FALL OF THE CHEST. PATIENT IS ALERT AND ORIENTED X 3 ON ROOM AIR WITH A SPO2 95%. PATIENT IS COMPLIANT WITH MEDICATIONS, CALM, POLITE, MAKES NEEDS KNOWN, RELIGIOUSLY PREOCCUPIED AND COOPERATIVE. PATIENT DENIES SUICIDAL AND HOMICIDAL IDEATIONS AT THIS TIME. PATIENT ASSISTED WITH TURNING AND REPOSITIONING Q2HR AND PRN FOR COMFORT AND CIRCULATION. PATIENT HAS NO NEEDS AT THIS TIME. PATIENT EDUCATED ON THE USE OF THE CALL WEBB. PATIENT BED SIDE RAILS UP X 2 FOR SAFETY. PATIENT BED IS LOCKED, LOW, WITH BED ALARM ON. WILL CONTINUE TO MONITOR THIS PATIENT Q15 MINUTES WITH THE HELP OF STAFF TO MAINTAIN SAFETY.
[2022-08-18] MEDS: OLANZAPINE 10 MG TABLET PO SCH (21:32)
[2022-08-18] MEDS: PAROXETINE HCL 20 MG TABLET PO SCH (21:32)
[2022-08-19] MEDS: GABAPENTIN 300 MG CAPSULE PO SCH ×3 (05:01→21:02)
[2022-08-19 08:00] VITALS: BP 94/58
[2022-08-19] MEDS: FOLIC ACID 1 MG TABLET PO SCH (08:37)
[2022-08-19] MEDS: THIAMINE HCL 100 MG TABLET PO SCH (08:37)
[2022-08-19] MEDS: DIVALPROEX SODIUM 125 MG TABLET.DR PO SCH ×2 (08:37→21:02)
[2022-08-19] MEDS: APIXABAN 5 MG TABLET PO SCH ×2 (08:37→16:07)
[2022-08-19] MEDS: CYANOCOBALAMIN 100 MCG TABLET PO SCH (09:14)
--- NOTE | 2022-08-19 09:25 | NUR ---
RN-CO: Received pt. awake , responsive to staffs and pleasant upon approached. Ate 100% for breakfast and compliant on meds. Pt. denies suicidal and with depressed mood. Encouraged to verbalized feelings and motivated to atend group activity. Needs attended and will continue to monitor for safety. PatIENT was also encouraged to ventilate feelings and attend groups.
[2022-08-19 16:00] VITALS: BP 102/63
[2022-08-19 20:33] VITALS: BP 100/52
[2022-08-19] MEDS: OLANZAPINE 10 MG TABLET PO SCH (21:02)
[2022-08-19] MEDS: PAROXETINE HCL 20 MG TABLET PO SCH (21:02)
[2022-08-20] MEDS: TEMAZEPAM 7.5 MG CAPSULE PO PRN (00:41)
[2022-08-20] MEDS: GABAPENTIN 300 MG CAPSULE PO SCH ×3 (05:25→21:25)
[2022-08-20 08:00] VITALS: BP 118/67
[2022-08-20] MEDS: DIVALPROEX SODIUM 125 MG TABLET.DR PO SCH ×2 (08:45→21:25)
[2022-08-20] MEDS: APIXABAN 5 MG TABLET PO SCH ×2 (08:46→16:39)
[2022-08-20] MEDS: THIAMINE HCL 100 MG TABLET PO SCH (08:46)
[2022-08-20] MEDS: FOLIC ACID 1 MG TABLET PO SCH (08:47)
[2022-08-20] MEDS: CYANOCOBALAMIN 100 MCG TABLET PO SCH (08:48)
[2022-08-20] MEDS: ACETAMINOPHEN 325 MG TABLET PO PRN (13:29)
[2022-08-20] MEDS: MAGNESIUM HYDROXIDE 30 ML UDC PO PRN (14:44)
--- NOTE | 2022-08-20 14:44 | NUR ---
NURSE NOTE: PT STATED THAT HAS NOT HAD A BM IN A WHILE AND REQUESTED MILK OF MAG. MOM ADMIN ORDERED. PT HENRY WELL. WILL CONT TO MONITOR. Addendum: 08/20/22 at 1834 by JOSELINE SHORT RN INSTRUCTED PT THAT HE HAD BEEN GOING DAILY, BUT PT STATED THAT HE FELT CONSTIPATED.
[2022-08-20 16:00] VITALS: BP 105/59
[2022-08-20 20:05] VITALS: BP 92/55
[2022-08-20] MEDS: PAROXETINE HCL 20 MG TABLET PO SCH (21:25)
[2022-08-20] MEDS: OLANZAPINE 10 MG TABLET PO SCH (21:25)
[2022-08-20 21:32] VITALS: BP 108/70
[2022-08-21] MEDS: clonazePAM 0.5 MG TABLET PO PRN (03:28)
[2022-08-21] MEDS: GABAPENTIN 300 MG CAPSULE PO SCH ×3 (05:12→21:24)
[2022-08-21 08:00] VITALS: BP 109/69
--- NOTE | 2022-08-21 08:58 | NUR ---
TAN Referral: TAN sent clinicals to Wili from [facility] for placement. TAN sent H & P, progress notes, and medication list.
[2022-08-21] MEDS: FOLIC ACID 1 MG TABLET PO SCH (09:07)
[2022-08-21] MEDS: THIAMINE HCL 100 MG TABLET PO SCH (09:07)
[2022-08-21] MEDS: APIXABAN 5 MG TABLET PO SCH ×2 (09:07→16:54)
[2022-08-21] MEDS: DIVALPROEX SODIUM 125 MG TABLET.DR PO SCH ×2 (09:08→21:24)
[2022-08-21] MEDS: CYANOCOBALAMIN 100 MCG TABLET PO SCH (09:08)
[2022-08-21] MEDS: ACETAMINOPHEN 325 MG TABLET PO PRN (09:46)
--- NOTE | 2022-08-21 09:47 | NUR ---
RN- NOTES TYLENOL ADMINISTERED DUE TO LEFT HIP PAIN.
[2022-08-21] MEDS: MAGNESIUM HYDROXIDE 30 ML UDC PO PRN (12:51)
--- NOTE | 2022-08-21 12:51 | NUR ---
RN- NOTES MILK OF MAGNESIA ADMINISTERED DUE TO PATIENT COMPLAINTS OF CONSTIPATION.
--- NOTE | 2022-08-21 18:48 | NUR ---
RN- CLOSING NOTES PATIENT AWAKE, RESTING IN BED, BREATHING EVEN AND NON LABORED WITH NO S/S OF DISTRESS. PATIENT IS COOPERATIVE, GUARDED, ANXIOUS, AND DEPRESSED. PATIENT IS MEDICATION COMPLIANT. PATIENT IS AMBULATORY INDEPENDENTLY WITH A WHEELCHAIR. DENIES SI/HI AT THIS TIME. WILL CONTINUE TO MONITOR Q 15 MINUTES FOR SAFETY AND BEHAVIOR.
[2022-08-21 19:55] VITALS: BP 99/54
[2022-08-21] MEDS: OLANZAPINE 10 MG TABLET PO SCH (21:25)
[2022-08-21] MEDS: PAROXETINE HCL 20 MG TABLET PO SCH (21:25)
[2022-08-22] MEDS: clonazePAM 0.5 MG TABLET PO PRN (03:56)
--- NOTE | 2022-08-22 06:03 | NUR ---
END OF SHIFT REPORT Patient hours of sleep 8. Anxiety controlled with PRN Klonopin. Denies SOB. Compliant with medication. Use wheelchair to move around. No c/o pain. Denies SI/HI ideas with no plan during the night. Q 1h head checked, no sharp object around. Plan for continue inpatient [facility] hospitalization. Will endorse to oncoming RN.
[2022-08-22] MEDS: GABAPENTIN 300 MG CAPSULE PO SCH ×3 (06:25→21:17)
[2022-08-22 08:00] VITALS: BP 114/71
[2022-08-22] MEDS: CYANOCOBALAMIN 100 MCG TABLET PO SCH (09:04)
[2022-08-22] MEDS: DIVALPROEX SODIUM 125 MG TABLET.DR PO SCH ×2 (09:05→21:18)
[2022-08-22] MEDS: APIXABAN 5 MG TABLET PO SCH ×2 (09:05→17:18)
[2022-08-22] MEDS: FOLIC ACID 1 MG TABLET PO SCH (09:05)
[2022-08-22] MEDS: THIAMINE HCL 100 MG TABLET PO SCH (09:05)
--- NOTE | 2022-08-22 11:34 | NUR ---
SNF Contact: SW received a call from Debra torres ([phone]) for placement and stated that pt is accepted at [facility].
--- NOTE | 2022-08-22 13:06 | NUR ---
Court Hearing: Patient does not have any supportive contact at this time.
--- NOTE | 2022-08-22 13:06 | NUR ---
Court Hearing: Patient's court hearing for 1920 was today and it was upheld for GD.
[2022-08-22] MEDS: MAGNESIUM HYDROXIDE 30 ML UDC PO PRN (15:51)
[2022-08-22 16:00] VITALS: BP 119/73
--- NOTE | 2022-08-22 16:00 | NUR ---
NURSE NOTE: PT REQUESTED MILK OF MAGNESIA. SAYS HES HAVING A DIFFICULT TIME HAVING A BM. MOM ADMIN ORDERED. PT HENRY WELL. WILL CONT TO MONITOR.
[2022-08-22 20:06] VITALS: BP 96/54
[2022-08-22] MEDS: OLANZAPINE 10 MG TABLET PO SCH (21:18)
[2022-08-22] MEDS: PAROXETINE HCL 20 MG TABLET PO SCH (21:18)
[2022-08-23] MEDS: GABAPENTIN 300 MG CAPSULE PO SCH ×3 (04:59→21:28)
[2022-08-23 08:00] VITALS: BP 117/69
[2022-08-23] MEDS: THIAMINE HCL 100 MG TABLET PO SCH (08:13)
[2022-08-23] MEDS: APIXABAN 5 MG TABLET PO SCH ×2 (08:13→16:32)
[2022-08-23] MEDS: FOLIC ACID 1 MG TABLET PO SCH (08:14)
[2022-08-23] MEDS: DIVALPROEX SODIUM 125 MG TABLET.DR PO SCH ×2 (08:14→21:28)
[2022-08-23] MEDS: CYANOCOBALAMIN 100 MCG TABLET PO SCH (08:15)
--- NOTE | 2022-08-23 09:30 | NUR ---
RN Notes: Received pt. awake in bed, quiet and responsive to staffs. Ate 100% for breakfast and compliant on meds. Encouraged to verbalize feelings and motivated to attend group activity. Needs attended and will continue to monitor for safety.
[2022-08-23] MEDS: ACETAMINOPHEN 325 MG TABLET PO PRN (15:29)
[2022-08-23 16:00] VITALS: BP 97/61
--- NOTE | 2022-08-23 19:30 | NUR ---
GPS RN NOTE, RECEIVED PATIENT AWAKE AND IN BED, NO S/S OR COMPLAINTS OF PAIN AT THIS TIME. PATIENT IS DISPLAYING NO S/S OF APPARENT DISTRESS AT THIS TIME. PATIENT BREATHING IS UNLABORED WITH EQUAL RISE AND FALL OF THE CHEST. PATIENT IS ALERT AND ORIENTED X 3 ON ROOM AIR WITH A SPO2 95%. PATIENT IS COMPLIANT WITH MEDICATIONS, CALM, POLITE, MAKES NEEDS KNOWN, RELIGIOUSLY PREOCCUPIED, AND COOPERATIVE. PATIENT DENIES SUICIDAL AND HOMICIDAL IDEATIONS AT THIS TIME. PATIENT ASSISTED WITH TURNING AND REPOSITIONING Q2HR AND PRN FOR COMFORT AND CIRCULATION. PATIENT HAS NO NEEDS AT THIS TIME. PATIENT EDUCATED ON THE USE OF THE CALL WEBB. PATIENT BED SIDE RAILS UP X 2 FOR SAFETY. PATIENT BED IS LOCKED, LOW, WITH BED ALARM ON. WILL CONTINUE TO MONITOR THIS PATIENT Q15 MINUTES WITH THE HELP OF STAFF TO MAINTAIN SAFETY.
[2022-08-23 20:28] VITALS: BP 95/59
[2022-08-23] MEDS: OLANZAPINE 10 MG TABLET PO SCH (21:28)
[2022-08-23] MEDS: PAROXETINE HCL 20 MG TABLET PO SCH (21:28)
[2022-08-23] MEDS: TEMAZEPAM 7.5 MG CAPSULE PO PRN (23:49)
--- NOTE | 2022-08-23 23:51 | NUR ---
GPS RN NOTE, PATIENT HAS A COMPLAINT OF NOT BEING ABLE TO SLEEP AND IS REQUESTING RESTORIL AT THIS TIME. PATIENT VITAL SIGNS ARE STABLE. GAVE RESTORIL 7.5MG PO HS PRN ORDERED. WILL REASSESS FOR INSOMNIA AND I WILL CONTINUE TO MONITOR THIS PATIENT WITH THE HELP OF STAFF.
[2022-08-24] MEDS: GABAPENTIN 300 MG CAPSULE PO SCH ×3 (06:14→21:14)
--- NOTE | 2022-08-24 07:10 | NUR ---
RN OPENING NOTE: RECEIVED PATIENT AWAKE AND IN BED, NO S/S OR COMPLAINTS OF PAIN AT THIS TIME. PATIENT IS DISPLAYING NO S/S OF APPARENT DISTRESS AT THIS TIME. PATIENT BREATHING IS UNLABORED WITH EQUAL RISE AND FALL OF THE CHEST. PATIENT IS ALERT AND ORIENTED X 3 ON ROOM AIR WITH A SPO2 98% PATIENT IS COMPLIANT WITH MEDICATIONS, CALM, POLITE, MAKES NEEDS KNOWN, RELIGIOUSLY PREOCCUPIED, AND COOPERATIVE. PATIENT DENIES SUICIDAL AND HOMICIDAL IDEATIONS AT THIS TIME. PATIENT ASSISTED WITH TURNING AND REPOSITIONING Q2HR AND PRN FOR COMFORT AND CIRCULATION. PATIENT HAS NO NEEDS AT THIS TIME. PATIENT EDUCATED ON THE USE OF THE CALL WEBB. PATIENT BED SIDE RAILS UP X 2 FOR SAFETY. PATIENT BED IS LOCKED, LOW, WITH BED
[2022-08-24 08:00] VITALS: BP 125/72
[2022-08-24] MEDS: DIVALPROEX SODIUM 125 MG TABLET.DR PO SCH ×2 (08:38→21:14)
[2022-08-24] MEDS: THIAMINE HCL 100 MG TABLET PO SCH (08:38)
[2022-08-24] MEDS: CYANOCOBALAMIN 100 MCG TABLET PO SCH (08:38)
[2022-08-24] MEDS: FOLIC ACID 1 MG TABLET PO SCH (08:38)
[2022-08-24] MEDS: APIXABAN 5 MG TABLET PO SCH ×2 (08:41→17:17)
[2022-08-24] MEDS: ACETAMINOPHEN 325 MG TABLET PO PRN (11:50)
[2022-08-24] MEDS: MAGNESIUM HYDROXIDE 30 ML UDC PO PRN (12:26)
[2022-08-24 16:00] VITALS: BP 96/60
--- NOTE | 2022-08-24 19:59 | NUR ---
SENIOR OPERATOR NOTE: RECEIVED PATIENT AWAKE AND IN BED, NO S/S OR COMPLAINTS OF PAIN AT THIS TIME. PATIENT IS DISPLAYING NO S/S OF APPARENT DISTRESS AT THIS TIME. PATIENT BREATHING IS UNLABORED WITH EQUAL RISE AND FALL OF THE CHEST. PATIENT IS ALERT AND ORIENTED X 3 ON ROOM AIR WITH A SPO2 98% PATIENT IS COMPLIANT WITH MEDICATIONS, CALM, POLITE, MAKES NEEDS KNOWN, RELIGIOUSLY PREOCCUPIED, AND COOPERATIVE. PATIENT DENIES SUICIDAL AND HOMICIDAL IDEATIONS AT THIS TIME. PATIENT ASSISTED WITH TURNING AND REPOSITIONING Q2HR AND PRN FOR COMFORT AND CIRCULATION. PATIENT HAS NO NEEDS AT THIS TIME. PATIENT EDUCATED ON THE USE OF THE CALL WEBB. BED IN LOWEST,LOCKED POSITION WITH SIDE RAILS UP X2.WILL CONTINUE TO MONITOR FOR SAFETY AND BEHAVIOR
[2022-08-24 20:00] VITALS: BP 112/62
[2022-08-24] MEDS: PAROXETINE HCL 20 MG TABLET PO SCH (21:16)
[2022-08-24] MEDS: OLANZAPINE 10 MG TABLET PO SCH (21:54)
[2022-08-25] MEDS: GABAPENTIN 300 MG CAPSULE PO SCH ×3 (05:06→21:07)
[2022-08-25 08:00] VITALS: BP 117/79
[2022-08-25] MEDS: DIVALPROEX SODIUM 125 MG TABLET.DR PO SCH ×2 (08:27→21:07)
[2022-08-25] MEDS: FOLIC ACID 1 MG TABLET PO SCH (08:27)
[2022-08-25] MEDS: APIXABAN 5 MG TABLET PO SCH ×2 (08:28→16:28)
[2022-08-25] MEDS: CYANOCOBALAMIN 100 MCG TABLET PO SCH (08:30)
[2022-08-25] MEDS: THIAMINE HCL 100 MG TABLET PO SCH (08:30)
[2022-08-25] MEDS: ACETAMINOPHEN 325 MG TABLET PO PRN (12:15)
[2022-08-25] MEDS: MAGNESIUM HYDROXIDE 30 ML UDC PO PRN (12:15)
--- NOTE | 2022-08-25 12:25 | NUR ---
RN NOTE Patient verbalized he is constipated, Milk of Magnesia 30ml po prn given at 1215. Will continue to monitor.
[2022-08-25 16:00] VITALS: BP 100/65
--- NOTE | 2022-08-25 18:40 | NUR ---
RN CLOSING NOTE Patient in the dining room with other patient. Patient is calm, cooperative and compliant to medication. On room air. Able to verbalized needs. Encouraged to verbalize thoughts and feelings. Safety measures implemented. Will endorse carolee to cyber security analyst.
[2022-08-25 20:00] VITALS: BP 103/55
[2022-08-25] MEDS: PAROXETINE HCL 20 MG TABLET PO SCH (21:07)
[2022-08-25] MEDS: OLANZAPINE 10 MG TABLET PO SCH (21:07)
[2022-08-26] MEDS: GABAPENTIN 300 MG CAPSULE PO SCH ×3 (05:09→21:27)
[2022-08-26 08:00] VITALS: BP 116/65
[2022-08-26] MEDS: CYANOCOBALAMIN 100 MCG TABLET PO SCH (08:44)
[2022-08-26] MEDS: THIAMINE HCL 100 MG TABLET PO SCH (08:44)
[2022-08-26] MEDS: DIVALPROEX SODIUM 125 MG TABLET.DR PO SCH (08:44)
[2022-08-26] MEDS: FOLIC ACID 1 MG TABLET PO SCH (08:44)
[2022-08-26] MEDS: APIXABAN 5 MG TABLET PO SCH ×2 (08:45→17:14)
[2022-08-26] MEDS: clonazePAM 0.5 MG TABLET PO PRN ×2 (12:29→18:53)
--- NOTE | 2022-08-26 12:30 | NUR ---
NURSE NOTE: PT STATED THAT HE IS FEELING ANXIOUS AT THIS TIME. REQUESTED KLONOPIN. KLONOPIN PO ADMINISTERED ORDERED. PT HENRY WELL. WILL CONT TO MONITOR.
--- NOTE | 2022-08-26 19:05 | NUR ---
RN CLOSING NOTE Patient sleeping in his bed. Patient was calm, cooperative and compliant to medication throughout the shift. On room air. Able to verbalized needs. Encouraged to verbalize thoughts and feelings. Safety measures implemented. Will endorse carolee to fast food shift lead.
[2022-08-26 20:32] VITALS: BP 100/60
[2022-08-26] MEDS: DIVALPROEX SODIUM 250 MG TABLET.DR PO SCH (21:27)
[2022-08-26] MEDS: OLANZAPINE 10 MG TABLET PO SCH (21:28)
[2022-08-26] MEDS: PAROXETINE HCL 20 MG TABLET PO SCH (21:28)
[2022-08-26] MEDS: TEMAZEPAM 7.5 MG CAPSULE PO PRN (21:28)
[2022-08-27] MEDS: GABAPENTIN 300 MG CAPSULE PO SCH ×3 (04:58→21:03)
[2022-08-27 08:00] VITALS: BP 103/71
[2022-08-27] MEDS: DIVALPROEX SODIUM 250 MG TABLET.DR PO SCH ×2 (08:32→21:03)
[2022-08-27] MEDS: FOLIC ACID 1 MG TABLET PO SCH (08:33)
[2022-08-27] MEDS: THIAMINE HCL 100 MG TABLET PO SCH (08:33)
[2022-08-27] MEDS: APIXABAN 5 MG TABLET PO SCH ×2 (08:34→16:34)
[2022-08-27] MEDS: CYANOCOBALAMIN 100 MCG TABLET PO SCH (08:35)
[2022-08-27] MEDS: clonazePAM 0.5 MG TABLET PO PRN (12:59)
[2022-08-27] MEDS: MAGNESIUM HYDROXIDE 30 ML UDC PO PRN (13:00)
--- NOTE | 2022-08-27 13:00 | NUR ---
NURSE NOTE: PT STATED THAT HE IS ANXIOUS AT THIS TIME, REQUESTED KLONOPIN. ALSO STATED THAT HE IS FEELING CONSTIPATED. REQUESTED MILK OF MAG. BOTH KLONOPIN AND MOM ADMIN ORDERED. PT HENRY WELL. WILL CONT TO MONITOR.
--- NOTE | 2022-08-27 14:00 | NUR ---
NURSE NOTE: PT CALM AT THIS TIME. KLONOPIN EFFECTIVE. WILL CONT TO MONITOR.
[2022-08-27 16:00] VITALS: BP 100/58
--- NOTE | 2022-08-27 19:30 | NUR ---
GPS RN OPENING NOTE RECEIVED PT UP IN WHEEL CHAIR. A/O X3 AND ABLE TO MAKE NEEDS KNOWN. PT STABLE ON ROOM AIR. NO SOB OR S/S OF RESPIRATORY DISTRESS. BREATHING EVEN AND UNLABORED. NO COMPLAINTS OF PAIN OR DISCOMFORT AT THIS TIME. DEPRESSED, CALM, AND COOPERATIVE. DENIES SI/HI AT THIS TIME. ABLE TO TRANSFER FROM WHEELCHAIR TO BED INDEPENDENTLY. WILL CONT TO MONITOR Q15MIN FOR SAFETY AND BEHAVIOR.
[2022-08-27 20:06] VITALS: BP 102/62
[2022-08-27] MEDS: PAROXETINE HCL 20 MG TABLET PO SCH (21:03)
[2022-08-27] MEDS: OLANZAPINE 10 MG TABLET PO SCH (21:03)
[2022-08-27] MEDS: TEMAZEPAM 7.5 MG CAPSULE PO PRN (21:04)
[2022-08-27] MEDS: ACETAMINOPHEN 325 MG TABLET PO PRN (21:04)
--- NOTE | 2022-08-27 21:07 | NUR ---
RN NOTE PT REQUESTED SLEEPING PILL FOR INSOMNIA AND TYLENOL FOR BILATERAL KNEE PAIN. ADMINISTERED TYLENOL AND RESTORIL ORDERED. ALL NEEDS MET AT THIS TIME.
[2022-08-28] MEDS: GABAPENTIN 300 MG CAPSULE PO SCH ×2 (05:19→13:03)
--- NOTE | 2022-08-28 06:41 | NUR ---
GPS RN CLOSING NOTE PT RESTING IN BED, VERBALLY RESPONSIVE. A/O X3 AND ABLE TO MAKE NEEDS KNOWN. PT STABLE ON ROOM AIR. NO SOB OR S/S OF RESPIRATORY DISTRESS. BREATHING EVEN AND UNLABORED. NO COMPLAINTS OF PAIN OR DISCOMFORT AT THIS TIME. DEPRESSED, CALM, AND COOPERATIVE. DENIES SI/HI AT THIS TIME. ABLE TO TRANSFER FROM WHEELCHAIR TO BED INDEPENDENTLY. MED COMPLIANT. WILL CONT TO MONITOR Q15MIN FOR SAFETY AND BEHAVIOR AND WILL ENDORSE TO ONCOMING NURSE FOR TITI.
[2022-08-28 08:00] VITALS: BP 117/72
--- NOTE | 2022-08-28 08:18 | NUR ---
SW Discharge Note: Patient will be discharged to custodial facility [facility] located at [address] [place] [address]; ([phone]). Please arrange ambulance at 1PM. Drill Press Operator Numerical Control spoke with Ronal Accounting Reconciliation Clerk ([phone]) who stated patient will be accepted at facility today. Patient is alert and oriented x3. Patient denies any suicidal or homicidal ideations. Patient is aware and agreeable with discharge plans. Patient has no supportive contact. Patient will continue to follow-up with (Psychiat[place]) [place] [address] [id number]; ([phone]) and (Remote Control Assembler) Dr. Mg [address] [place] [id number]; ([phone]). Patient presents with euthymic mood and congruent affect.
[2022-08-28] MEDS: THIAMINE HCL 100 MG TABLET PO SCH (09:14)
[2022-08-28] MEDS: DIVALPROEX SODIUM 250 MG TABLET.DR PO SCH (09:14)
[2022-08-28] MEDS: APIXABAN 5 MG TABLET PO SCH (09:14)
[2022-08-28] MEDS: FOLIC ACID 1 MG TABLET PO SCH (09:15)
[2022-08-28] MEDS: CYANOCOBALAMIN 100 MCG TABLET PO SCH (09:16)
[2022-08-28] MEDS: ACETAMINOPHEN 325 MG TABLET PO PRN (11:52)
[2022-08-28] MEDS: MAGNESIUM HYDROXIDE 30 ML UDC PO PRN (11:52)
--- NOTE | 2022-08-28 13:30 | NUR ---
DAY CARE AIDE NOTE: 62 Y/O MALE DISCHARGED TO [facility] IN STABLE CONDITION. COMPLIANT WITH MEDICATION, COOPERATIVE WITH TREATMENT PLAN. PT DENIES SI/HI/AVH AND INSTRUCTED TO GO TO THE CLOSEST ER IF DEVELOPING SI/HI. BEHAVIOR IMPROVED, PSYCHIATRIC TX PLANS MET, MEDICAL TX PLANS DEFERRED FOR CONTINUAL MONITORING. EDUCATED PT ABOUT AFTER CARE PLAN AND COPY PROVIDED. RETURNED PERSONAL BELONGINGS TO PT. MEDICATION RECONCILED WITH DR. SWAIN AND DR. ARCHER REPORT GIVEN TO MAYRA PALMER AT [facility] FOR CONTINUITY OF CARE PT SIGNED DISCHARGE PAPERWORK PT LEFT THE UNIT AT 1330 VIA AMBULANCE.
== END 2022-08-28 13:30 | DRG 885 ==
LOC: GPS 18:01
PROVIDERS: ADMIT Nurse Practitioner Psychiatric/Mental Health; ATTEND Internal Medicine
DX: F25.1 Schizoaffective disorder, depressive type (principal); R45.851 Suicidal ideations; E44.1 Mild protein-calorie malnutrition; I42.9 Cardiomyopathy, unspecified; E88.09 Other disorders of plasma-protein metabolism, not elsewhere classified; F41.9 Anxiety disorder, unspecified; Z79.01 Long term (current) use of anticoagulants; Z86.711 Personal history of pulmonary embolism; I10 Essential (primary) hypertension; E78.5 Hyperlipidemia, unspecified; E78.1 Pure hyperglyceridemia; Z79.899 Other long term (current) drug therapy; Z99.3 Dependence on wheelchair; Z91.51 Personal history of suicidal behavior; Z59.00 Homelessness unspecified; Z79.51 Long term (current) use of inhaled steroids
CPT/HCPCS: 36415; 80053-TC; 80061-TC; 80164-TC; 97110-TC; 97112-TC; 97116-TC; 97530-TC